=== PATIENT | male | born 1945 | race Caucasian/White ===

== ENCOUNTER 2017-02-25 11:43 | Inpatient (IN) | payer OTHER ==
[~2017-02-25] VITALS: Ht 180.3 cm; Wt 88.9 kg
[~2017-02-25 11:43] MED LIST changes: -ASPI-435 PO; -LIDOCAINE HCL 2% 2 ML VIAL (20MG/ML) ONE; -PROPOFOL IV EMULSION 10 MG/ML 20 ML VIAL IV ONE; -[UNRECOGNIZED DRUG - OTHER]
--- NOTE | 2017-02-25 12:20 | EMERGENCY ROOM VISIT NOTE ---
History Report prepared by Kyree: Devika Steve Under the Supervision of: Dr. Chava Chávez M.D. First contact with patient: 12:06 Chief Complaint: SWELLING TO EXTREMITY Stated Complaint: FROM GI History of Present Illness The patient is a 71 year old male who presents to the Emergency Room with complaints of increasing swelling to his lower extremities that began several months ago. Per Dr. Laird, Anesthesiology, the patient presented to the GI lab today for a colonoscopy. He states that the patient was found to have increased lower extremity edema and appeared Jaundiced. Dr. Laird noted that the patient has noticed increased shortness of breath over the past several months. Per records the patient has a history of a poor ejection fraction and heart failure. The patient denies any history of liver problems. He states that he takes Lasix daily. He notes shortness of breath with movement. The patient reports slight intermittent abdominal pain. He denies any fever or vomiting. The patient denies wearing any oxygen at home. He states that he has had difficulty sleeping lately, noting that he has been feeling anxious about the swelling in his legs. The patient reports a history of heavy alcohol use, but states that he has not drank since 2001. Source of History: patient, treating provider (Dr. Laird) Onset: several months ago Position: leg (bilateral) Quality: other (swelling) Timing: other (increasing) Associated Symptoms: + SOB, + abdominal pain, No fevers, No vomiting Review of Systems See HPI for pertinent positives & negatives. A total of 10 systems reviewed and were otherwise negative. Past Medical & Surgical Medical Problems: (1) ARF (acute renal failure) (2) Chronic kidney disease, stage 3 (3) Fatty liver (4) Hyperbilirubinemia (5) Hypokalemia (6) Hypothyroidism (7) Non-ischemic cardiomyopathy (8) Splenomegaly (9) Systolic CHF Surgical Problems: (1) H/O cardiac catheterization Family History Asthma FH: cancer FH: heart disease Social History Smoking Status: Current Every Day Smoker Alcohol Use: none Drug Use: none Marital Status: Housing Status: lives alone Occupation Status: retired Current/Historical Medications Scheduled Allopurinol (Zyloprim), 300 MG PO QAM Carvedilol (Coreg), 3.125 MG PO BID Cholecalciferol (Vitamin D), 1 TAB PO QAM Levothyroxine Sodium (Synthroid), 100 MCG PO QAM Losartan Potassium (Cozaar), 12.5 MG PO QAM Scheduled PRN Baclofen (Lioresal), 10 MG PO TID PRN for BACK PAIN Furosemide (Lasix), 1 TAB PO BID PRN for FLUID ACCUMULATION/WT GAIN Prednisone (Prednisone), 20 MG PO DIRECTED PRN for PRN Trazodone Hcl (Trazodone), 50 MG PO HS PRN for Sleep Miscellaneous Medications [arthro joint] Allergies Coded Allergies: No Known Allergies (Unverified , 02/25/17) Physical Exam Vital Signs Date Time Temp Pulse Resp B/P (MAP) Pulse Ox O2 Delivery O2 Flow Rate FiO2 02/25/17 14:06 84 22 122/64 93 Room Air 02/25/17 13:36 85 22 92 Room Air 02/25/17 12:17 94 Room Air 02/25/17 12:14 93 02/25/17 11:56 36.6 96 18 128/80 93 Room Air Physical Exam GENERAL: Patient is in no acute distress. HEENT: No acute trauma, normocephalic atraumatic, mucous membranes moist, no nasal congestion. NECK: No stridor, no adenopathy, no meningismus, trachea is midline. LUNGS: Clear to auscultation bilaterally, no wheeze, no rhonchi, breath sounds equal. HEART: No murmurs, rate is regular, but there are some occasional extra beats. ABDOMEN: Soft, nontender, bowel sounds positive, no hernias, no peritonitis. EXTREMITIES: Moderate bilateral pedal edema, extending to the thighs, no cellulitis. No cyanosis, full range of motion of all the joints without pain or difficulty, no signs for acute trauma. NEUROLOGIC: Oriented x 3, no acute motor or sensory deficits, no focal weakness. SKIN: Jaundiced. No rash, no diaphoresis. Medical Decision & Procedures ER Provider Diagnostic Interpretation: Radiology results as stated below per my review and radiologist interpretation: CHEST ONE VIEW PORTABLE HISTORY: Short of breath. COMPARISON: Chest 07/30/2015. FINDINGS: No pleural effusions. No pneumothorax. Calcified granuloma the right lung base. Progressive interstitial vascular thickening. This is consistent with mild congestive change. The cardiac silhouette is also increased in size. Degenerative changes within the bilateral shoulders. IMPRESSION: Increase in size in the cardiac silhouette which could be due to mild cardiomegaly or a small pericardial effusion. There is also mild pulmonary vascular congestion. Electronically signed by: Edgar Caicedo M.D. 02/25/2017 12:08 PM Dictated Date/Time: 02/25/2017 12:07 PM Bilateral lower extremity ultrasound does not show any evidence for acute DVT. Laboratory Results 02/25/17 12:30 Red Blood Count 3.32, Mean Corpuscular Volume 94.9, Mean Corpuscular Hemoglobin 29.5, Mean Corpuscular Hemoglobin Concent 31.1, Mean Platelet Volume 11.6, Neutrophils (%) (Auto) 78.9, Lymphocytes (%) (Auto) 10.5, Monocytes (%) (Auto) 7.6, Eosinophils (%) (Auto) 1.1, Basophils (%) (Auto) 0.2, Neutrophils # (Auto) 6.86, Lymphocytes # (Auto) 0.91, Monocytes # (Auto) 0.66, Eosinophils # (Auto) 0.10, Basophils # (Auto) 0.02 02/25/17 12:30 Test 02/25/17 12:30 02/25/17 12:48 White Blood Count 8.70 K/uL (4.8-10.8) Red Blood Count 3.32 M/uL (4.7-6.1) Hemoglobin 9.8 g/dL (14.0-18.0) Hematocrit 31.5 % (42-52) Mean Corpuscular Volume 94.9 fL (80-100) Mean Corpuscular Hemoglobin 29.5 pg (25-34) Mean Corpuscular Hemoglobin Concent 31.1 g/dl (32-36) Platelet Count 476 K/uL (130-400) Mean Platelet Volume 11.6 fL (7.4-10.4) Neutrophils (%) (Auto) 78.9 % Lymphocytes (%) (Auto) 10.5 % Monocytes (%) (Auto) 7.6 % Eosinophils (%) (Auto) 1.1 % Basophils (%) (Auto) 0.2 % Neutrophils # (Auto) 6.86 K/uL (1.4-6.5) Lymphocytes # (Auto) 0.91 K/uL (1.2-3.4) Monocytes # (Auto) 0.66 K/uL (0.11-0.59) Eosinophils # (Auto) 0.10 K/uL (0-0.5) Basophils # (Auto) 0.02 K/uL (0-0.2) RDW Standard Deviation 60.9 fL (36.4-46.3) RDW Coefficient of Variation 17.7 % (11.5-14.5) Immature Granulocyte % (Auto) 1.7 % Immature Granulocyte # (Auto) 0.15 K/uL (0.00-0.02) Prothrombin Time 13.5 SECONDS (9.0-12.0) Prothromb Time International Ratio 1.3 (0.9-1.1) Activated Partial Thromboplast Time 33.2 SECONDS (21.0-31.0) Partial Thromboplastin Ratio 1.3 Anion Gap 9.0 mmol/L (3-11) Est Creatinine Clear Calc Drug Dose 46.5 ml/min Estimated GFR () 45.4 Estimated GFR (Non- 39.1 BUN/Creatinine Ratio 13.7 (10-20) Calcium Level 8.6 mg/dl (8.5-10.1) Magnesium Level 2.3 mg/dl (1.8-2.4) Total Bilirubin 4.3 mg/dl (0.2-1) Direct Bilirubin 0.4 mg/dl (0-0.2) Aspartate Amino Transf (AST/SGOT) 15 U/L (15-37) Alanine Aminotransferase (ALT/SGPT) 12 U/L (12-78) Alkaline Phosphatase 120 U/L (45-117) Troponin I 0.024 ng/ml (0-0.045) Pro-B-Type Natriuretic Peptide 31844 pg/ml (0-900) Total Protein 7.0 gm/dl (6.4-8.2) Albumin 3.5 gm/dl (3.4-5.0) Lipase 114 U/L (73-393) Thyroid Stimulating Hormone (TSH) 5.120 uIu/ml (0.300-4.500) Free Thyroxine 1.29 ng/dl (0.80-1.60) Urine Color DK YELLOW Urine Appearance CLOUDY (CLEAR) Urine pH 5.5 (4.5-7.5) Urine Specific [place] 1.019 (1.000-1.030) Urine Protein NEG (NEG) Urine Glucose (UA) NEG (NEG) Urine Ketones NEG (NEG) Urine Occult Blood NEG (NEG) Urine Nitrite NEG (NEG) Urine Bilirubin NEG (NEG) Urine Urobilinogen NEG (NEG) Urine Leukocyte Esterase MODERATE (NEG) Urine WBC (Auto) >30 /hpf (0-5) Urine RBC (Auto) 0-4 /hpf (0-4) Urine Hyaline Casts (Auto) 5-10 /lpf (0-5) Urine Epithelial Cells (Auto) >30 /lpf (0-5) Urine Bacteria (Auto) NEG (NEG) Urine Yeast (Auto) (NONE PRSENT) Laboratory results reviewed by me. Medications Administered Medications (Trade) Dose Ordered Sig/Lisa Route Start Time Stop Time Status Last Admin Dose Admin Furosemide (Lasix Inj) 40 mg NOW STAT IV 02/25/17 13:40 02/25/17 13:42 DC 02/25/17 14:02 40 MG ECG Indication: SOB/dyspnea Rate (beats per minute): 94 Rhythm: sinus rhythm Findings: 1st degree AV block, LBBB, PVC, no acute ischemic change ED Course 1207: The patient was evaluated in room C4. A complete history and physical exam was performed. 1340: Ordered Lasix Inj 40 mg IV. 1342: I reevaluated the patient and he is resting comfortably. I discussed the exam findings with him and I discussed the treatment plan. He verbalized complete understanding and agreement. He is going to be evaluated for further treatment. 1345: I discussed the patients case with Lucinda Drummond. She is going to evaluate the patient for further treatment. Medical Decision The patient is a 71 year old male who presents to the ED with complaints of swelling to his lower extremities. Differential diagnoses considered include Hepatitis, liver failure, dehydration, electrolyte imbalance, anemia, CHF, fluid overload, [place]. There is no leukocytosis. The patient is anemic but this appears baseline looking back at previous testing. There is some acute renal failure/ dehydration by renal panel testing. Bilirubin is elevated at over 4, this is an acute finding. This explains his jaundiced appearance. No pancreatitis. The patient's thyroid testing suggests the use of thyroid medication. Urinalysis shows infection versus contamination, urine culture is pending. Bilateral lower extremity ultrasound does not show evidence for DVT. Chest film from earlier today demonstrates some cardiomegaly, no overwhelming CHF. No pneumothorax. BNP quite elevated at over 20,000. A mild coagulopathy was noted by our testing. The patient received IV Lasix to start his diuresis. He is resting comfortably. He complains of being hungry. The patient presents with new onset jaundice. He is markedly fluid overloaded. He requires diuresis. Further workup and care in the hospital is warranted. I spoke to the patient and case management. The on-call hospitalist was consulted. Medication Reconcilliation Current Medication List: was personally reviewed by me Consults Time Called: 1340 Consulting Physician: Chris Drummond Returned Call: [phone] I discussed the patients case with Lucinda Drummond. She is going to evaluate the patient for further treatment. Impression Primary Impression: Shortness of breath Additional Impressions: Fluid overload Jaundice Scribe Attestation The scribe's documentation has been prepared under my direction and personally reviewed by me in its entirety. I confirm that the note above accurately reflects all work, treatment, procedures, and medical decision making performed by me. Departure Information Dispostion Being Evaluated By Hospitalist Referrals Michi Campbell M.D. (PCP) Problem Qualifiers
[2017-02-25] MEDS ORDERED: [UNRECOGNIZED DRUG - OTHER] (12:34)
[2017-02-25 12:56] LABS: BASO % 0.2 %; BASO ABS # 0.02 K/uL (0-0.2); COMPLETE YES; EOS % 1.1 %; HEMATOCRIT 31.5 % (42-52); IG% 1.7 %; LYMPH % 10.5 %; LYMPH ABS # 0.91 K/uL (1.2-3.4); MEAN CELL VOLUME 94.9 fL (80-100); MEAN CORPUSCULAR HEMOGLOBIN 29.5 pg (25-34); MEAN CORPUSCULAR HGB CONC 31.1 g/dl (32-36); MEAN PLATELET VOLUME 11.6 fL (7.4-10.4); MONO % 7.6 %; NEUT % 78.9 %; PLATELET COUNT 476 K/uL (130-400); RED BLOOD COUNT 3.32 M/uL (4.7-6.1)
[2017-02-25 13:00] LABS: INR 1.3 (0.9-1.1); PARTIAL THROMBOPLASTIN RATIO 1.3; PROTHROMBIN TIME (PATIENT) 13.5 SECONDS (9.0-12.0)
[2017-02-25 13:12] LABS: URINE APPEARANCE CLOUDY (CLEAR); URINE BILIRUBIN NEG (NEG); URINE COLOR DK YELLOW; URINE NITRITE NEG (NEG); URINE PH 5.5 (4.5-7.5); URINE SPECIFIC GRAVITY 1.019 (1.000-1.030); UROBILINOGEN NEG (NEG); ZZUR CULT IF INDIC CLEAN CATCH YES
[2017-02-25 13:18] LABS: MANUAL MICROSCOPIC REQUIRED? NO; REVIEW REQ? YES
[2017-02-25 13:19] LABS: BUN/CREATININE RATIO 13.7 (10-20); CALCIUM 8.6 mg/dl (8.5-10.1); CREATININE 1.7 mg/dl (0.60-1.40); MAGNESIUM 2.3 mg/dl (1.8-2.4); POTASSIUM 3.1 mmol/L (3.5-5.1)
[2017-02-25 13:28] LABS: THYROID STIMULATING HORMONE 5.12 uIu/ml (0.300-4.500)
[2017-02-25] MEDS ORDERED: FUROSEMIDE 40 MG/4 ML VIAL IV STA (13:40)
[2017-02-25 13:47] LABS: URINE EPITHELIAL CELL AUTO >30 /lpf (0-5)
--- NOTE | 2017-02-25 15:01 | DIAGNOSTIC IMAGING REPORT ---
BILATERAL LOWER EXTREMITY VENOUS DOPPLER HISTORY: Lower extremity edema COMPARISON STUDY: None. FINDINGS: There is normal compressibility, flow, and augmentation within the bilateral lower extremity deep venous systems. IMPRESSION: No DVT within the right or left lower extremity. Electronically signed by: Edgar Caicedo M.D. 02/25/2017 3:00 PM Dictated Date/Time: 02/25/2017 2:58 PM
[2017-02-25] MEDS ORDERED: ASPI-435 PO (15:43)
[2017-02-25] MEDS ORDERED: ZOLPIDEM TARTRATE 5 MG TAB PO PRN (15:45)
[2017-02-25] MEDS ORDERED: ONDANSETRON INJ 2 MG/ML 2 ML VIAL IV PRN (15:45)
[2017-02-25] MEDS ORDERED: TRAZODONE HCL 50 MG TAB PO PRN (16:30)
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
--- NOTE | 2017-02-25 17:34 | DIAGNOSTIC IMAGING REPORT ---
ULTRASOUND RIGHT UPPER QUADRANT ABDOMEN CLINICAL HISTORY: Jaundice. COMPARISON STUDY: Renal ultrasound dated 07/30/2015. TECHNIQUE: Real-time, grayscale, and color flow sonography of the right upper quadrant of the abdomen was performed. Images are reviewed in the transverse and longitudinal planes. FINDINGS: Liver: The liver is mildly enlarged measuring over 19 cm in length. The liver is slightly heterogeneous in echotexture. There is no intrahepatic biliary ductal dilatation. The main portal vein is patent. Gallbladder: The gallbladder is normal in appearance. No gallstones are identified. There is no gallbladder wall thickening or pericholecystic fluid. A sonographic Pérez's sign is reportedly absent. The common bile duct measures up to 0.6 cm in diameter. Pancreas: Visualized portions of the pancreatic head and body are normal in appearance. Right kidney: Survey images of the right kidney demonstrate cortical atrophy. There is no hydronephrosis. Ascites: None. IMPRESSION: 1. The liver is mildly enlarged and heterogeneous in echotexture. 2. There is no intra or extrahepatic biliary ductal dilatation. 3. No gallstones are identified. Electronically signed by: Chava Cardoza M.D. 02/25/2017 5:32 PM Dictated Date/Time: 02/25/2017 5:31 PM
[2017-02-25 18:43] VITALS: BP 131/76; PULSE 94; TEMP 36.6; O2SAT 95; Ht 180.3 cm; Wt 88.9 kg
[2017-02-25] MEDS ORDERED: INFLUENZA VACCINE HIGH DOSE 65+ 0.5 ML SYR IM. ONE (19:45)
[2017-02-25] MEDS ORDERED: PNEUMOCOCCAL ADMINISTRATION CHARGE ONE (19:45)
[2017-02-25] MEDS ORDERED: INFLUENZA ADMINISTRATION CHARGE ONE (19:45)
[2017-02-25] MEDS ORDERED: PNEUMOCOCCAL POLYSACCHARIDES 25 MCG/0.5 ML VIAL/SYR IM. ONE (19:45)
[2017-02-25 20:32] VITALS: BP 129/84; PULSE 85
[2017-02-25] MEDS: POTASSIUM CHLORIDE 20 MEQ TABCR PO SCH (20:33)
[2017-02-25] MEDS: FUROSEMIDE INJ 40 MG in SYRINGE 0 ML IV SCH (20:35)
[2017-02-25] MEDS: CARVEDILOL 3.125 MG TAB PO SCH (20:36)
[2017-02-25] MEDS: HEPARIN SOD 5000 UNIT/0.5 ML CARP SQ SCH (20:39)
[2017-02-25] MEDS: BACLOFEN 10 MG TAB PO PRN (20:40)
[2017-02-25] MEDS ORDERED: HEPARIN SOD 5000 UNIT/0.5 ML CARP SQ SCH (21:00)
[2017-02-25 21:09] VITALS: BP 129/91; PULSE 97; TEMP 36.3; O2SAT 93
[2017-02-25] MEDS ORDERED: FAMOTIDINE 20 MG TAB PO STA (21:57)
[2017-02-25] MEDS: ZOLPIDEM TARTRATE 5 MG TAB PO PRN (22:13)
[2017-02-25] MEDS: CALCIUM CARBONATE 500 MG CHEWABLE PO PRN (22:15)
[2017-02-25 22:58] VITALS: BP 113/74; PULSE 94; TEMP 36.6; O2SAT 93
[2017-02-26] VITALS (9 sets, daily range): BP systolic 94–123; BP diastolic 60–77; PULSE 78–94; TEMP 36.4–36.7; O2SAT 91–96
[2017-02-26] MEDS: POTASSIUM CHLORIDE 20 MEQ TABCR PO SCH (00:42)
[2017-02-26] MEDS: BACLOFEN 10 MG TAB PO PRN (05:04)
[2017-02-26] MEDS: LEVOTHYROXINE 100 MCG TAB PO SCH (05:05)
--- NOTE | 2017-02-26 07:13 | DIAGNOSTIC IMAGING REPORT ---
CHEST ONE VIEW PORTABLE CLINICAL HISTORY: 71 years-old Male presenting with Acute on chronic CHF . TECHNIQUE: Portable upright AP view of the chest was obtained. COMPARISON: 02/25/2017. FINDINGS: Cardiopericardial silhouette remains enlarged. Atherosclerosis of aortic arch. Prominent pulmonary vasculature. No new focal infiltrate. No pleural effusion or pneumothorax. Calcified granuloma or bone island noted at the right lung base, better visualized on prior exam. Degenerative changes of the bilateral glenohumeral joints and spine. Numerous external leads project over the right upper quadrant degrading evaluation. IMPRESSION: 1. Cardiomegaly with pulmonary vascular congestion. No shawna pulmonary edema. Pericardial effusion not excluded. Electronically signed by: Lobo Hernández M.D. 02/26/2017 7:11 AM Dictated Date/Time: 02/26/2017 7:10 AM
[2017-02-26 07:52] LABS: HEMATOCRIT 33.1 % (42-52); MEAN CELL VOLUME 95.9 fL (80-100); MEAN CORPUSCULAR HEMOGLOBIN 29.6 pg (25-34); MEAN CORPUSCULAR HGB CONC 30.8 g/dl (32-36); MEAN PLATELET VOLUME 11.5 fL (7.4-10.4); PLATELET COUNT 531 K/uL (130-400); RED BLOOD COUNT 3.45 M/uL (4.7-6.1); WHITE BLOOD COUNT 9.15 K/uL (4.8-10.8)
[2017-02-26 07:58] LABS: INR 1.3 (0.9-1.1); PROTHROMBIN TIME (PATIENT) 13.8 SECONDS (9.0-12.0)
[2017-02-26 08:23] LABS: BUN/CREATININE RATIO 12.8 (10-20); CALCIUM 9.2 mg/dl (8.5-10.1); CREATININE 1.9 mg/dl (0.60-1.40)
[2017-02-26] MEDS: HEPARIN SOD 5000 UNIT/0.5 ML CARP SQ SCH ×2 (08:53→21:00)
[2017-02-26] MEDS: FUROSEMIDE INJ 40 MG in SYRINGE 0 ML IV SCH (08:54)
[2017-02-26] MEDS: CHOLECALCIFEROL 1000 INTER.UNIT TAB PO SCH (08:56)
[2017-02-26] MEDS: ASPIRIN 81 MG ECTAB PO SCH (08:56)
[2017-02-26] MEDS: ALLOPURINOL 300 MG TAB PO SCH (08:56)
[2017-02-26] MEDS: CARVEDILOL 3.125 MG TAB PO SCH ×2 (08:57→21:04)
[2017-02-26] MEDS ORDERED: POTASSIUM CHLORIDE 10 MEQ TABCR PO SCH (09:00)
[2017-02-26] MEDS ORDERED: LOSARTAN POTASSIUM 25 MG TAB PO SCH (09:00)
--- NOTE | 2017-02-26 10:11 | ECHOCARDIOGRAM REPORT ---
*NOTICE TO RECEIVING REPUBLICAN AGENCY This information is strictly Confidential and protected under [place] law. [place] law prohibits you from making any further disclosure of this information unless further disclosure is expressly permitted by the written consent of the person to whom it pertains or is authorized by law. A general authorization for the release of medical or other information is not sufficient for this purpose. Hospital accepts no responsibility if the information is made available to any other person, INCLUDING THE PATIENT. Interpretation Summary * Name: ANGELA PANDEY Study Date: 02/26/2017 07:54 AM BP: 116/75 mmHg * Patient Location: [facility]\S\N285\S\2 HR: 94 * : 1945 (M/d/yyyy) Gender: Male Height: 71 in * Age: 71 yrs Ethnicity: [place] Weight: 219 lb * Ordering Physician: Sadia Garcia * Referring Physician: Self, Referred * Performed By: Carmen Delgado RCS * * Reason For Study: CHF * BSA: 2.2 m2 * -- Conclusions -- * Compared to previous study of 01/02/15: EF is unchanged, MR and TR are now present. * Moderately dilated LV chamber size with normal wall thickness. * Severely reduced LV systolic function with severe global hypokinesis, EF 25-30%. * Grade II diastolic dysfunction. * The mitral valve anatomy is normal. * There is moderate mitral regurgitation. * The mitral regurgitant jet is posteriorly directed, which is consistent with anterior leaflet pathology. * Mild to moderate tricuspid regurgitation. * Pulmonary hypertension is present with a PASP of 56 mmHg assuming a RA pressure of 15mmHg. * Mild biatrial enlargement. Procedure Details * A complete two-dimensional transthoracic echocardiogram was performed (2D, M-mode, Doppler and color flow Doppler). Left Ventricle * The left ventricle is moderately dilated. * There is normal left ventricular wall thickness. * Ejection Fraction = 25-30%. * Left ventricular systolic function is severely reduced. * There is severe global hypokinesis of the left ventricle. Right Ventricle * The right ventricular cavity size is normal (basal dimension <4.2 cm in right ventricular apical 4-chamber view). * The right ventricular systolic function is normal as assessed by tricuspid annular plane systolic excursion (TAPSE) (normal >1.5 cm). Atria * The left atrium is mildly dilated. * The right atrium is mildly dilated. * No ASD detected; PFO is not assessed. Mitral Valve * The mitral valve anatomy is normal. * There is no mitral valve stenosis. * There is moderate mitral regurgitation. * The mitral regurgitant jet is posteriorly directed, which is consistent with anterior leaflet pathology. Tricuspid Valve * The tricuspid valve anatomy is normal. * There is no tricuspid stenosis. * There is mild to moderate tricuspid regurgitation. Aortic Valve * The aortic valve is not well visualized. * No hemodynamically significant valvular aortic stenosis. * There is no significant aortic regurgitation. Pulmonic Valve * The pulmonary valve is not well seen, but the Doppler examination is normal without significant regurgitation or stenosis. Great Vessels * The aortic root and proximal ascending aorta are normal sized. Pericardium/Pleural * There is no pericardial effusion. Left Ventricular Diastolic Function * Diastolic dysfunction, Grade II (pseudonormalization pattern). MMode 2D Measurements and Calculations IVSd 1.1 cm IVSs 1.1 cm LVIDd 7.4 cm LVIDs 6.7 cm LVPWd 1.1 cm LVPWs 1.1 cm IVS/LVPW 0.97 FS 10.5 % EDV(Teich) 292.8 ml ESV(Teich) 228.3 ml EF(Teich) 22.0 % EDV(cubed) 411.6 ml ESV(cubed) 295.5 ml EF(cubed) 28.2 % % IVS thick 0.17 % % LVPW thick -4.81 % LV mass(C)d 417.5 grams LV mass(C)dI 190.5 grams/m\S\2 LV mass(C)s 335.2 grams LV mass(C)sI 152.9 grams/m\S\2 SV(Teich) 64.5 ml SI(Teich) 29.4 ml/m\S\2 SV(cubed) 116.0 ml SI(cubed) 52.9 ml/m\S\2 Ao root diam 3.7 cm Ao root area 10.9 cm\S\2 ACS 1.5 cm LA dimension 4.5 cm asc Aorta Diam 2.9 cm LA/Ao 1.2 Doppler Measurements and Calculations MV E max jodi 92.7 cm/sec MV A max jodi 41.2 cm/sec MV E/A 2.2 MV P1/2t max jodi 98.5 cm/sec MV P1/2t 122.1 msec MVA(P1/2t) 1.8 cm\S\2 MV dec slope 236.4 cm/sec\S\2 MV dec time 0.19 sec Ao V2 max 130.1 cm/sec Ao max PG 6.8 mmHg Ao max PG (full) 6.1 mmHg LV V1 max PG 0.70 mmHg LV V1 max 41.8 cm/sec PA V2 max 59.9 cm/sec PA max PG 1.4 mmHg TR max jodi 319.3 cm/sec
[2017-02-26] MEDS ORDERED: ALUMINUM/MAGNESIUM/SIMETH (MAALOX MAX) 30 ML UDC PO ONE (11:30)
[2017-02-26] MEDS ORDERED: SPIRONOLACTONE 25 MG TAB PO ONE (11:30)
--- NOTE | 2017-02-26 11:44 | CARDIOLOGY CONSULTATION ---
DATE OF CONSULTATION: 02/26/2017 DATE OF CONSULTATION: 02/26/2017 CONSULTATION REQUESTED BY: NÉSTOR. REASON FOR CONSULTATION: Acute decompensated systolic heart failure. HISTORY OF PRESENT ILLNESS: Mr. Abraham is a 71-year-old gentleman who intermittently follows with Dr. Novak of our cardiology practice. The patient presented to [facility] for an outpatient colonoscopy today to evaluate adenomatous polyps. However, upon presentation, the patient was found to be jaundiced with significant peripheral edema. The colonoscopy was canceled and the patient was directed to the Emergency Room for further evaluation. In the ER, the patient was found to be significantly volume overloaded. He was started on IV diuretics and admitted to telemetry. The patient was seen and examined at the bedside. He admits that his symptoms started approximately 2 months ago. He started at that time, he noticed that he started getting a little bit more short of breath than normal with exertion. At the same time, his lower extremity seemed to start swelling and he developed some abdominal distention. The symptoms slowly progressed over the next 2 months to the point where he had swelling in his legs up to the mid thigh. His abdomen was significantly distended to the point where he is having early satiety and he was getting more and more short of breath with exertion. Luckily, though he denied any chest pain or palpitations. Currently, he states that he feels his abdomen improving with diuresis and otherwise feeling well. He states he has been taking his medications as an outpatient and that he has been adhering to his low salt diet. PAST SURGICAL HISTORY: 1. Cardiac catheterization in 2013 showing nonobstructive disease. 2. Multiple colonoscopies. MEDICAL ILLNESSES: 1. Nonischemic cardiomyopathy, EF of 25-30%, refusing ICD therapy in the past. 2. Stage III chronic kidney disease. 3. Fatty liver. 4. Hypothyroidism. 5. Borderline personality disorder. 6. Splenomegaly. 7. Gout. FAMILY HISTORY: Remarkable for mother developed heart disease at a later age. SOCIAL HISTORY: The patient is a lifelong smoker and continues to smoke half pack a day. Denies any alcohol, did have a history of significant alcohol use. Denies any recreational drug use. REVIEW OF SYSTEMS: As per HPI. All other review of systems reviewed and negative at this time. ALLERGIES: No known drug allergies. MEDICATIONS AN OUTPATIENT: 1. Aspirin 81 mg daily. 2. Losartan 12.5 mg daily. 3. Lasix 40 to 80 mg daily, directed per volume overload. 4. Coreg 3.125 mg b.i.d. 5. Levothyroxine daily. 6. Allopurinol daily. 7. Baclofen as needed. PHYSICAL EXAMINATION: VITALS: Temperature 36.4, pulse 94, respiratory rate 12, blood pressure 116/75. GENERAL: Awake, alert, oriented x3 in no acute distress, out of bed seated in a chair, jaundiced in appearance. HEENT: Normocephalic, atraumatic. Pupils equal, round, and reactive to light and accommodation. Extraocular muscles intact. Positive scleral icterus. NECK: No JVD or bruit. CARDIOVASCULAR: Regular, but distant. Unable to appreciate any murmurs, rubs or gallops. PULMONARY: Poor air movement bilateral bases. Scattered rhonchi. No rales or wheezing. ABDOMEN: Bowel sounds x4. Distended, no rebound, guarding, tenderness. No organomegaly. EXTREMITIES: +2 bilateral lower extremity pitting edema up to mid thigh. +1 pedal pulses bilaterally. SKIN: Warm and dry. TEST RESULTS: Chest x-ray was read as cardiomegaly with pulmonary vascular congestion. No pericardial effusions. A 2D echocardiogram was read as compared to previous study of 01/02/2015, EF is unchanged. MR and TR and now present. Moderately dilated LV chamber size with normal wall thickness, severely reduced LV systolic function, EF is 25-30% with severe global hypokinesis, grade 2 diastolic dysfunction, moderate mitral regurgitation with a posteriorly directed jet, mild to moderate tricuspid regurgitation, pulmonary hypertension is present with PA systolic pressure of 56 mmHg assuming a RA pressure of 15 mmHg, mild biatrial enlargement. IMPRESSION: 1. Acute decompensated left ventricular systolic heart failure. 2. Newly discovered pulmonary hypertension. 3. Newly discovered mitral regurgitation. 4. Worsening of renal function likely secondary to cardiorenal syndrome. 5. Jaundice, likely secondary to passive congestion. RECOMMENDATIONS: It was my pleasure to see Mr. Abraham in consultation today. The patient is definitely volume overloaded and with a new finding of mitral regurgitation on echocardiogram, this is not unexpected. So at this point I agree with b.i.d. IV Lasix; however, I will increase the dose to 80 mg b.i.d. given his impaired renal function. I will also start him on spironolactone 25 mg daily, and I will continue his current doses of Coreg, but his losartan will be held at this point while we follow his renal function. I will hold off on his potassium supplementation at this point also given the fact that we are started on spironolactone. Strict I's and O's should be maintained and we will continue to follow closely on telemetry monitoring. Once again, the need for primary prevention of arrhythmia and possible arrhythmogenic were discussed with the patient. Once again, he refused the ICD placement. KARINA
--- NOTE | 2017-02-26 18:34 | Progress Note ---
Internal Med Progress Note Date of Service: Feb 26, 2017. Provider Documentation: SUBJECTIVE: patient ambulatory. denies chest pain, denies shortness of breath. still has leg swelling OBJECTIVE: General Appearance: no apparent distress Head: normocephalic, atraumatic Eyes: PERRL, EOMI ENT: hearing grossly normal Neck: supple, no adenopathy, no JVD, trachea midline Respiratory/Chest: chest non-tender, no respiratory distress, no accessory muscle use, + rhonchi Cardiovascular: regular rate, rhythm, no murmur Abdomen/GI: normal bowel sounds, non tender, soft Back: normal inspection, no CVA tenderness Extremities: no calf tenderness, 2+ bilateral edema up to knees. Associated skin hypertrophy and discoloration observed. No skin breakdown Neurologic/Psych: no motor/sensory deficits, alert, normal mood/affect, oriented x 3 ASSESSMENT & PLAN: Acute on chronic CHF: TTE:left ventricle is moderately dilated. Ejection Fraction = 25-30%. severe global hypokinesis of the left ventricle. Cardiology: increase Lasix to 80 mg IV BID, spirolactone for cardiorenal symptoms Hypokalemia resolved after repletion eep on standing potassium repletion and monitor potassium as patient on increased doses of lasix Elevated indirect bilirubin, elevated alk phosphatase, mild jaundice Ultrasound abdomen fairly benign: The liver is mildly enlarged and heterogeneous in echotexture. There is no intra or extrahepatic biliary ductal dilatation. No gallstones are identified. GGT and G6PD and haptoglobin ordered but pending results LDH 556 elevated suggestive of some hemolysis peripheral smear: "overall findings are consistent with normocytic anemia with thrombocytosis" Normocytic anemia stable HTN: Normotensive, Continue home regimen CKD III: Monitor closely while on diuretics Hypothyroidism on Levothyroxine TSH 5.12, T4 8.6 Continue home dose of levothyroxine DVT Ppx: Heparin SQ Code status: FULL PCP: Pilgram Dispo: Plan to return home once adequately diuresed on IV lasix Vital Signs: Date Time Temp Pulse Resp B/P (MAP) Pulse Ox O2 Delivery O2 Flow Rate FiO2 02/26/17 16:09 36.7 84 16 104/60 (75) 95 Room Air 02/26/17 16:00 91 Room Air 02/26/17 15:17 36.5 86 18 111/72 (85) 94 Room Air 02/26/17 12:53 Room Air 02/26/17 12:00 Room Air 02/26/17 08:00 Room Air 02/26/17 07:36 36.4 94 24 116/75 (89) 91 Room Air 02/26/17 04:07 Room Air 02/26/17 04:00 36.6 85 20 123/77 (92) 92 02/26/17 00:05 Room Air 02/25/17 22:58 36.6 94 18 113/74 (87) 93 Room Air 02/25/17 21:09 36.3 97 18 129/91 (104) 93 Room Air 02/25/17 20:32 85 129/84 (99) 02/25/17 18:43 36.6 94 18 131/76 95 Room Air Lab Results: Results Past 24 Hours Test 02/26/17 07:34 Range/Units White Blood Count 9.15 4.8-10.8 K/uL Red Blood Count 3.45 4.7-6.1 M/uL Hemoglobin 10.2 14.0-18.0 g/dL Hematocrit 33.1 42-52 % Mean Corpuscular Volume 95.9 80-100 fL Mean Corpuscular Hemoglobin 29.6 25-34 pg Mean Corpuscular Hemoglobin Concent 30.8 32-36 g/dl RDW Standard Deviation 61.9 36.4-46.3 fL RDW Coefficient of Variation 17.7 11.5-14.5 % Platelet Count 531 130-400 K/uL Mean Platelet Volume 11.5 7.4-10.4 fL Nucleated RBC Absolute Count (auto) 0.06 0-0 K/uL Nucleated Red Blood Cells % 0.7 % Peripheral Blood Smear Path Consult Prothrombin Time 13.8 9.0-12.0 SECONDS Prothromb Time International Ratio 1.3 0.9-1.1 Sodium Level 139 136-145 mmol/L Potassium Level 4.0 3.5-5.1 mmol/L Chloride Level 102 98-107 mmol/L Carbon Dioxide Level 30 21-32 mmol/L Anion Gap 7.0 3-11 mmol/L Blood Urea Nitrogen 24 7-18 mg/dl Creatinine 1.90 0.60-1.40 mg/dl Est Creatinine Clear Calc Drug Dose 65.0 ml/min Estimated GFR () 39.7 Estimated GFR (Non- 34.2 BUN/Creatinine Ratio 12.8 10-20 Random Glucose 102 70-99 mg/dl Calcium Level 9.2 8.5-10.1 mg/dl Total Bilirubin 4.8 0.2-1 mg/dl Aspartate Amino Transf (AST/SGOT) 24 15-37 U/L Alanine Aminotransferase (ALT/SGPT) 14 12-78 U/L Alkaline Phosphatase 135 45-117 U/L Total Protein 7.2 6.4-8.2 gm/dl Albumin 3.6 3.4-5.0 gm/dl Globulin 3.6 2.5-4.0 gm/dl Albumin/Globulin Ratio 1.0 0.9-2
[2017-02-26] MEDS: FUROSEMIDE INJ 80 MG in SYRINGE 0 ML IV SCH (21:03)
[2017-02-26] MEDS: ZOLPIDEM TARTRATE 5 MG TAB PO PRN (21:10)
[2017-02-27 03:47] VITALS: BP 100/60; PULSE 64; TEMP 36.4; O2SAT 94
[2017-02-27] MEDS: LEVOTHYROXINE 100 MCG TAB PO SCH (05:38)
[2017-02-27 06:15] LABS: BUN/CREATININE RATIO 15.9 (10-20); CALCIUM 8.5 mg/dl (8.5-10.1); CREATININE 2.2 mg/dl (0.60-1.40); POTASSIUM 3.8 mmol/L (3.5-5.1)
[2017-02-27 07:22] VITALS: BP 94/51; PULSE 86; TEMP 36.4; O2SAT 93
[2017-02-27] MEDS: HEPARIN SOD 5000 UNIT/0.5 ML CARP SQ SCH ×2 (08:31→21:00)
[2017-02-27] MEDS: CARVEDILOL 3.125 MG TAB PO SCH (08:33)
[2017-02-27] MEDS: FUROSEMIDE INJ 80 MG in SYRINGE 0 ML IV SCH ×2 (08:34→20:59)
[2017-02-27] MEDS: ASPIRIN 81 MG ECTAB PO SCH (08:34)
[2017-02-27] MEDS: SPIRONOLACTONE 25 MG TAB PO SCH (08:34)
[2017-02-27] MEDS: CHOLECALCIFEROL 1000 INTER.UNIT TAB PO SCH (08:34)
[2017-02-27] MEDS: ALLOPURINOL 300 MG TAB PO SCH (08:34)
[2017-02-27 08:35] VITALS: BP 138/79; PULSE 89
--- NOTE | 2017-02-27 10:15 | Cardiology Follow-Up ---
Subjective Subjective Date of Service: Feb 27, 2017. Pt evaluation today including: conversation w/ patient, physical exam, chart review, lab review, review of studies, review of inpatient medication list Additional Details: Pt seen and examined, states that he feels about the same. Admits that breathing has improved though but edema unchanged. Denies cp, palpitations, lightheadedness or dizziness. Tele reviewed: sinus rhythm with 2 short salvos of wide complex tachycardia, asymptomatic Problem List Medical Problems: (1) Ambulatory dysfunction Status: Acute (2) Fluid overload Status: Acute (3) Generalized weakness Status: Acute (4) Jaundice Status: Acute (5) Kidney disease Status: Acute (6) Polyarticular arthritis Status: Acute (7) Shortness of breath Status: Acute (8) Symptomatic anemia Status: Acute Review of Systems Constitutional: + weakness, + fatigue Respiratory: + dyspnea on exertion, No see HPI, No cough, No sputum, No wheezing, No shortness of breath, No dyspnea at rest, No hemoptysis, No problem reported Cardiac: + edema, No see HPI, No chest pain, No orthopnea, No PND, No claudication, No palpitations, No problem reported Musculoskeletal: + joint pain Neurologic: + weakness, + balance problems Endo: + fatigue Objective Vital Signs Last Vital Signs Documentation Date Time Temp Pulse Resp B/P (MAP) Pulse Ox O2 Delivery O2 Flow Rate FiO2 02/27/17 08:35 89 138/79 (98) 02/27/17 08:30 Room Air 02/27/17 07:22 36.4 20 93 Physical Exam: General Appearance: WD/WN, no apparent distress Eyes: bilateral eyes normal inspection, bilateral eyes PERRL, bilateral eyes EOMI ENT: normal ENT inspection, hearing grossly normal, pharynx normal Neck: supple, no adenopathy, thyroid normal, no JVD, no carotid bruits, trachea midline Respiratory/Chest: chest non-tender, no respiratory distress, no accessory muscle use, + decreased breath sounds Cardiovascular: regular rate, rhythm, + pertinent finding (distant, unable to apprecitate murmurs, rubs or gallops) Abdomen: non tender, soft Extremities: normal inspection, no calf tenderness, + pertinent finding (+2 b/ l LE edema to above the knee) Neurologic/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 acute decompensated systolic heart failure unclear if diuresing well, unsure of accuracy of I/O's daily weights being used on different scales cont IV lasix 80mg bid and spironolactone renal function trending down, likely component of cardiorenal syndrome with poor perfusion will ask our nephrology colleagues to evaluate losartan held 2. new mitral regurgitation likely playing a component in decompensation follow 3. acute on chronic renal failure ?cardiorenal syndrome losartan held need to cont with diuresis clinically appreciate nephrology input 4. wide complex tachycardia aberrancy vs. ventricular tachycardia patient does qualify for BiV ICD however, refusing explained potentially fatal, he states that he understands but does not want procedure will increase dose of coreg cont to monitor on tele
[2017-02-27] MEDS ORDERED: CARVEDILOL 3.125 MG TAB PO ONE (10:16)
[2017-02-27 11:09] VITALS: BP 112/68; PULSE 83; TEMP 36.6; O2SAT 92
[2017-02-27] MEDS: BACLOFEN 10 MG TAB PO PRN ×2 (12:09→21:01)
--- NOTE | 2017-02-27 13:29 | Clinical Documentation Query ---
CLINICAL DOCUMENTATION QUERY Dr. ALFARO, In your clinical opinion is this patient being managed for: (x ) Acute kidney failure ( ) Not Agree ( ) Other explanation of clinical findings (Please Explain) ( ) Unable to determine (Please Define) ( ) Need to Discuss The medical record reflects the following clinical findings, treatment, and risk factors. Clinical Indicators: 71 yo male presenting with acute systolic CHF. Initial Cr 1.7 which has trended up to Cr 2.20. Pt has been receiving IV and aldactone for diuresis. Treatment: monitor PRP's, nephrology consult pending, I/O, daily wts Risk Factors: age, diuresis for acute systolic CHF, CKD stage III, cardiomyopathy, HTN Please clarify and document your clinical opinion in the progress notes and discharge summary. Terms such as "probable", "suspected", "likely", "questionable", "possible", or "still to be ruled out" are acceptable. IF IN AGREEMENT, YOU MUST DOCUMENT ABOVE DIAGNOSTIC STATEMENT IN DAILY PROGRESS NOTES AND DISCHARGE SUMMARY. This document is not part of the patient's record. Thank You, Rosio Gardiner, RN [phone]
[2017-02-27 15:00] VITALS: BP 116/70; PULSE 83; TEMP 36.4; O2SAT 95
--- NOTE | 2017-02-27 17:43 | Progress Note ---
Internal Med Progress Note Date of Service: Feb 27, 2017. Provider Documentation: SUBJECTIVE: patient ambulatory. denies acute chest pain or acute shortness of breath. still has leg swelling that appears to be resolving OBJECTIVE: General Appearance: no apparent distress Head: normocephalic, atraumatic Eyes: PERRL, EOMI ENT: hearing grossly normal Neck: supple, no adenopathy, no JVD, trachea midline Respiratory/Chest: chest non-tender, no respiratory distress, no accessory muscle use, more clear lung sound bilaterally today Cardiovascular: regular rate, rhythm, no murmur Abdomen/GI: normal bowel sounds, non tender, soft Back: normal inspection, no CVA tenderness Extremities: no calf tenderness, some edema of lower extremities bilaterally, has hard skin on lower extremities likely from chronic skin changes due to recurrent lower extremity edema Neurologic: no motor/sensory deficits, alert, normal mood/affect, oriented x 3 ASSESSMENT & PLAN: Acute on chronic CHF with new mitral regurgitation TTE:left ventricle is moderately dilated. Ejection Fraction = 25-30%. severe global hypokinesis of the left ventricle. Cardiology had increase Lasix to 80 mg IV BID and added spirolactone, cardiology recommending to continue diuresis at same rate with the thoughts that the creatinine rise is due to poor renal perfusion from cardiorenal syndrome but requesting nephrology consult alternatively elevated creatinine may be from Acute kidney injury from the increased diuresis but will defer to nephrologies assessment on this matter Hypokalemia resolved after repletion on standing potassium repletion and monitor potassium as patient on high doses of Lasix Wide complex tachycardia (aberrancy vs. ventricular tachycardia) -as per cardiology, patient qualifies for BIV ICD however has been refusing -on increase level of coreg Elevated indirect bilirubin, elevated alk phosphatase, mild jaundice -Ultrasound abdomen fairly benign: The liver is mildly enlarged and heterogeneous in echotexture. There is no intra or extrahepatic biliary ductal dilatation. No gallstones are identified. -GGT and G6PD and haptoglobin ordered but pending results -LDH 556 elevated suggestive of some hemolysis -peripheral smear: "overall findings are consistent with normocytic anemia with thrombocytosis" Normocytic anemia stable HTN: Normotensive, Continue home regimen CKD III: Monitor closely while on diuretics Hypothyroidism on Levothyroxine TSH 5.12, T4 8.6 Continue home dose of levothyroxine DVT Ppx: Heparin SQ Code status: FULL PCP: Pilgram Dispo: Plan to return home once adequately diuresed on IV Lasix Vital Signs: Date Time Temp Pulse Resp B/P (MAP) Pulse Ox O2 Delivery O2 Flow Rate FiO2 02/27/17 15:00 36.4 83 20 116/70 (85) 95 Room Air 02/27/17 12:15 Room Air 02/27/17 11:09 36.6 83 20 112/68 (83) 92 Room Air 02/27/17 08:35 89 138/79 (98) 02/27/17 08:30 Room Air 02/27/17 07:22 36.4 86 20 94/51 (65) 93 Room Air 02/27/17 04:00 Room Air 02/27/17 03:47 36.4 64 16 100/60 (73) 94 Room Air 02/26/17 23:59 Room Air 02/26/17 23:46 103/61 (75) 02/26/17 23:26 36.6 79 16 94/60 (71) 96 Room Air 02/26/17 20:00 91 Room Air 02/26/17 19:48 36.5 78 18 110/75 (87) 96 Room Air Lab Results: Results Past 24 Hours Test 02/27/17 05:22 Range/Units Sodium Level 141 136-145 mmol/L Potassium Level 3.8 3.5-5.1 mmol/L Chloride Level 104 98-107 mmol/L Carbon Dioxide Level 31 21-32 mmol/L Anion Gap 6.0 3-11 mmol/L Blood Urea Nitrogen 35 7-18 mg/dl Creatinine 2.20 0.60-1.40 mg/dl Est Creatinine Clear Calc Drug Dose 36.0 ml/min Estimated GFR () 33.2 Estimated GFR (Non- 28.7 BUN/Creatinine Ratio 15.9 10-20 Random Glucose 86 70-99 mg/dl Calcium Level 8.5 8.5-10.1 mg/dl Total Bilirubin 3.8 0.2-1 mg/dl Aspartate Amino Transf (AST/SGOT) 31 15-37 U/L Alanine Aminotransferase (ALT/SGPT) 24 12-78 U/L Alkaline Phosphatase 153 45-117 U/L Total Protein 6.5 6.4-8.2 gm/dl Albumin 3.3 3.4-5.0 gm/dl Globulin 3.2 2.5-4.0 gm/dl Albumin/Globulin Ratio 1.0 0.9-2
[2017-02-27 19:45] VITALS: BP 111/71; PULSE 67; TEMP 36.9; O2SAT 92
[2017-02-27] MEDS: ZOLPIDEM TARTRATE 5 MG TAB PO PRN (21:00)
[2017-02-27] MEDS: CARVEDILOL 6.25 MG TAB PO SCH (21:00)
[2017-02-28] VITALS (9 sets, daily range): BP systolic 94–117; BP diastolic 52–89; PULSE 68–87; TEMP 36.4–36.8; O2SAT 90–96
[2017-02-28] MEDS: LEVOTHYROXINE 100 MCG TAB PO SCH (05:26)
[2017-02-28 08:20] LABS: HEMATOCRIT 31.8 % (42-52); MEAN CELL VOLUME 95.2 fL (80-100); MEAN CORPUSCULAR HEMOGLOBIN 29.3 pg (25-34); MEAN CORPUSCULAR HGB CONC 30.8 g/dl (32-36); PLATELET COUNT 529 K/uL (130-400); RED BLOOD COUNT 3.34 M/uL (4.7-6.1); WHITE BLOOD COUNT 9.89 K/uL (4.8-10.8)
[2017-02-28] MEDS: CHOLECALCIFEROL 1000 INTER.UNIT TAB PO SCH (08:29)
[2017-02-28] MEDS: ASPIRIN 81 MG ECTAB PO SCH (08:30)
[2017-02-28] MEDS: CARVEDILOL 6.25 MG TAB PO SCH ×2 (08:30→20:53)
[2017-02-28] MEDS: ALLOPURINOL 300 MG TAB PO SCH (08:30)
[2017-02-28] MEDS: HEPARIN SOD 5000 UNIT/0.5 ML CARP SQ SCH ×2 (08:30→20:54)
[2017-02-28] MEDS: SPIRONOLACTONE 25 MG TAB PO SCH (09:00)
[2017-02-28] MEDS: FUROSEMIDE INJ 80 MG in SYRINGE 0 ML IV SCH ×2 (09:00→20:52)
[2017-02-28] MEDS: ALUMINUM/MAGNESIUM/SIMETH (MAALOX MAX) 30 ML UDC PO PRN (10:22)
[2017-02-28 11:25] LABS: BUN/CREATININE RATIO 17.3 (10-20); CALCIUM 8.5 mg/dl (8.5-10.1); CREATININE 2.3 mg/dl (0.60-1.40); MAGNESIUM 2.6 mg/dl (1.8-2.4); POTASSIUM 4.1 mmol/L (3.5-5.1)
--- NOTE | 2017-02-28 14:18 | NEPHROLOGY CONSULTATION ---
DATE OF CONSULTATION: 02/28/2017 REASON FOR CONSULT: Acute renal failure with severe congestive heart failure. HISTORY OF PRESENT ILLNESS: The patient is a 71-year-old male with a history of congestive heart failure, both systolic as well as diastolic with an EF of 25%-30%, hypertension, and chronic kidney disease stage III. His baseline creatinine is not really established as he seems to be in chronic fluid overload and he does not seem to be taking Lasix on a regular basis. In any case, his creatinine in fluid overload states typically run in the mid 1s. He presented to the hospital yesterday for outpatient colonoscopy; however, the patient was found to be dyspneic with exertion with significant bilateral lower extremity swelling as well as jaundice. Colonoscopy was canceled and the patient was sent to the Emergency Department for further evaluation. According to the patient, lower extremity edema has been present and getting worse for the last few months and he was getting increasingly dyspneic as well as orthopneic. He denied having any chest pain, palpitations or weight gain, but I do not think he really checks his weight at home. He normally takes Lasix intermittently, but has not taken for the last few days. The patient does not have any history of liver disease to account for the jaundice. Yesterday, at the time of admission, creatinine was 1.9. This morning, it is slightly higher at 2.3. BUN is 40. Jaundice was present with a bilirubin of 4.8. This morning, slightly better at 3.1. He did have a very elevated BNP of 20,923 and a chest x-ray was also consistent with pulmonary vascular congestion. PAST MEDICAL AND SURGICAL HISTORY: Chronic kidney disease, stage III, baseline creatinine in the mid 1.5 range, fatty liver with a history of alcohol abuse in the past, hypokalemia, hypothyroidism, nonischemic cardiomyopathy with an ejection fraction of 25%-30%, coronary artery disease, history of splenomegaly, and history of cardiac catheterization. FAMILY HISTORY: Negative for renal disease. SOCIAL HISTORY: Current every day smoker. History of heavy alcohol abuse, last heavy drinking was in 2005. No drugs. Marital status is . He lives alone. He is retired. ALLERGIES: None. HOME MEDICATIONS: Included allopurinol, Coreg, vitamin D, Synthroid, and losartan. He was also supposed to take Lasix, but was not for the last few days. REVIEW OF SYSTEMS: As listed in the HPI. A total of 12 systems reviewed and otherwise negative. PHYSICAL EXAMINATION: GENERAL: Elderly white male, who is in mild respiratory distress. He is awake, alert, and oriented x3. VITAL SIGNS: Blood pressure 112/69 and saturation 93% on room air. HEENT: Mucous membrane is moist. NECK: Supple. Jugular venous distension present. RESPIRATORY: Decreased breath sounds. Occasional crackles at the bases. CARDIOVASCULAR: Distant heart sounds. No murmur, rubs or gallop. ABDOMEN: Obese. EXTREMITIES: Shows 2-3+ bilateral lower extremity pitting edema up to the upper thigh. SKIN: Warm and dry with chronic venous changes. X-ray showed CHF. LABORATORY TEST: Shows from this morning, sodium 140, potassium 4.1, BUN 40, and creatinine 2.3. Bilirubin down to 3.1. Alkaline phosphatase 171. Hemoglobin 9.8. Urine showed negative blood and negative protein. ASSESSMENT AND PLAN: Patient is a 71-year-old male with severe cardiomyopathy, now presenting with acute decompensated congestive heart failure as well as jaundice related with severe passive congestion. It is worth noting that we cannot really call his admission creatinine as baseline as that was in the setting of severe fluid overload, which obviously caused hemodilution and artificially makes the creatinine appear better than real. There is no question, he needs to be diuresed aggressively to get his symptoms better and to get closer to euvolemic status. Creatinine is rising because of the cardiorenal syndrome like picture, but this is acceptable and permissible and I would not cut down on the Lasix. Continue Lasix 80 mg IV twice daily. He seems to be making urine adequately. I agree with cardiology and not using Cozaar for the time being. Even the spironolactone may need to be held if creatinine continues to go up because that also affect the GFR to some extent. He made about 1800 mL of urine yesterday, which I do not believe is adequate. He needs to have urine at least 2-1/2-3 liters. Consider increasing the dose of Lasix and may even have to add metolazone. Thank you very much for the consult. [facility]
[2017-02-28] MEDS: CALCIUM CARBONATE 500 MG CHEWABLE PO PRN (14:31)
--- NOTE | 2017-02-28 15:06 | Cardiology Follow-Up ---
Subjective Subjective Date of Service: Feb 28, 2017. Pt evaluation today including: conversation w/ patient, physical exam, chart review, lab review, review of studies, review of inpatient medication list Additional Details: Pt seen and examined, oob in chair. States that his breathing has slightly improved since admission. Denies cp, palpitations, lightheadedness or dizziness. Tele reviewed: sinus rhythm without arrhythmias. Problem List Medical Problems: (1) Ambulatory dysfunction Status: Acute (2) Fluid overload Status: Acute (3) Generalized weakness Status: Acute (4) Jaundice Status: Acute (5) Kidney disease Status: Acute (6) Polyarticular arthritis Status: Acute (7) Shortness of breath Status: Acute (8) Symptomatic anemia Status: Acute Review of Systems Constitutional: + weakness, + fatigue Respiratory: + dyspnea on exertion, No see HPI, No cough, No sputum, No wheezing, No shortness of breath, No dyspnea at rest, No hemoptysis, No problem reported Cardiac: + edema, No see HPI, No chest pain, No orthopnea, No PND, No claudication, No palpitations, No problem reported Musculoskeletal: + joint pain Neurologic: + weakness, + balance problems Endo: + fatigue Objective Vital Signs Last Vital Signs Documentation Date Time Temp Pulse Resp B/P (MAP) Pulse Ox O2 Delivery O2 Flow Rate FiO2 02/28/17 14:37 36.4 87 20 116/60 (78) 92 Room Air Physical Exam: General Appearance: WD/WN, no apparent distress Eyes: bilateral eyes normal inspection, bilateral eyes PERRL, bilateral eyes EOMI ENT: normal ENT inspection, hearing grossly normal, pharynx normal Neck: supple, no adenopathy, thyroid normal, no JVD, no carotid bruits, trachea midline Respiratory/Chest: chest non-tender, no respiratory distress, no accessory muscle use, + decreased breath sounds Cardiovascular: regular rate, rhythm, + pertinent finding (distant, unable to apprecitate murmurs, rubs or gallops) Abdomen: non tender, soft Extremities: normal inspection, no calf tenderness, + pertinent finding (+2 b/ l LE edema to above the knee) 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 acute decompensated systolic heart failure unclear if diuresing well, unsure of accuracy of I/O's daily weights being used on different scales cont IV lasix 80mg bid and spironolactone appreciate nephrology input will consider possibly increasing lasix dosage or adding metolazone losartan held 2. new mitral regurgitation likely playing a component in decompensation follow 3. acute on chronic renal failure ?cardiorenal syndrome losartan held need to cont with diuresis clinically appreciate nephrology input 4. wide complex tachycardia aberrancy vs. ventricular tachycardia 5. severe NICM patient now agreeable to proceed with BiV ICD with underlying LBBB question is timing he is unsure how long he'd like to remain admitted, will discuss further will continue to diurese in the meantime. cont to monitor on tele
--- NOTE | 2017-02-28 15:17 | Progress Note ---
Internal Med Progress Note Date of Service: Feb 28, 2017. Provider Documentation: SUBJECTIVE: patient ambulatory. denies acute chest pain or acute shortness of breath. having short runs of vtach recorded but patient denies palpitations. have re- discussed with him about benefits of BIV ICD because his heart failure puts him at risk for arrthymia and sudden cardiac arrest but patient explains he is deferring decision to accept treatment based on costs. Have informed case management about his financial concerns. Lasix this AM held because of concern for hypotension OBJECTIVE: General Appearance: no apparent distress Head: normocephalic, atraumatic Eyes: PERRL, EOMI ENT: hearing grossly normal Neck: supple, no adenopathy, no JVD, trachea midline Respiratory/Chest: chest non-tender, no respiratory distress, no accessory muscle use, more clear lung sound bilaterally today Cardiovascular: regular rate, rhythm, no murmur Abdomen/GI: normal bowel sounds, non tender, soft Back: normal inspection, no CVA tenderness Extremities: no calf tenderness, some edema of lower extremities bilaterally, has hard skin on lower extremities likely from chronic skin changes due to recurrent lower extremity edema Neurologic: no motor/sensory deficits, alert, normal mood/affect, oriented x 3 ASSESSMENT & PLAN: Acute on chronic CHF with new mitral regurgitation TTE: left ventricle is moderately dilated. Ejection Fraction = 25-30%. severe global hypokinesis of the left ventricle. Cardiology had increase Lasix to 80 mg IV BID and added spirolactone, cardiology recommending to continue diuresis at same rate with the thoughts that the creatinine rise is due to poor renal perfusion from cardiorenal syndrome but requesting nephrology consult as per nephrology: patient made about 1800 mL of urine yesterday, which is inadequate. patient needs to have urine at least 2-1/2-3 liters. Consider increasing the dose of Lasix and may even have to add metolazone. will continue IV Lasix as 80 mg IV BID for now but adding metolazone 2.5 mg BID Hypokalemia resolved after repletion on standing potassium repletion and monitor potassium as patient on high doses of Lasix Wide complex tachycardia (aberrancy vs. ventricular tachycardia) -as per cardiology, patient qualifies for BIV ICD however has been declining, patient concerned about costs -on increased level of coreg Elevated indirect bilirubin, elevated alk phosphatase, mild jaundice -Ultrasound abdomen fairly benign: The liver is mildly enlarged and heterogeneous in echotexture. There is no intra or extrahepatic biliary ductal dilatation. No gallstones are identified. -GGT and G6PD and haptoglobin ordered but pending results -LDH 556 elevated suggestive of some hemolysis -peripheral smear: "overall findings are consistent with normocytic anemia with thrombocytosis" Normocytic anemia stable HTN: Normotensive, Continue home regimen CKD III: Monitor closely while on diuretics Hypothyroidism on Levothyroxine TSH 5.12, T4 8.6 Continue home dose of levothyroxine DVT Ppx: Heparin SQ Code status: FULL PCP: Dr. Blunt Dispo: Plan to return home once adequately diuresed on IV Lasix Vital Signs: Date Time Temp Pulse Resp B/P (MAP) Pulse Ox O2 Delivery O2 Flow Rate FiO2 02/28/17 14:37 36.4 87 20 116/60 (78) 92 Room Air 02/28/17 12:00 Room Air 02/28/17 09:15 83 112/69 (83) 02/28/17 09:10 83 94/52 (66) 02/28/17 08:00 93 Room Air 02/28/17 07:28 36.8 84 20 98/68 (78) 93 Room Air 02/28/17 04:00 36.4 68 16 108/58 (75) 90 02/28/17 04:00 Room Air 02/28/17 00:18 36.4 76 16 100/66 (77) 96 02/28/17 00:00 Room Air 02/27/17 20:00 Room Air 02/27/17 19:45 36.9 67 20 111/71 (84) 92 Room Air 02/27/17 16:00 Room Air Lab Results: Results Past 24 Hours Test 02/28/17 07:28 Range/Units White Blood Count 9.89 4.8-10.8 K/uL Red Blood Count 3.34 4.7-6.1 M/uL Hemoglobin 9.8 14.0-18.0 g/dL Hematocrit 31.8 42-52 % Mean Corpuscular Volume 95.2 80-100 fL Mean Corpuscular Hemoglobin 29.3 25-34 pg Mean Corpuscular Hemoglobin Concent 30.8 32-36 g/dl RDW Standard Deviation 60.7 36.4-46.3 fL RDW Coefficient of Variation 17.8 11.5-14.5 % Platelet Count 529 130-400 K/uL Mean Platelet Volume 12.0 7.4-10.4 fL Nucleated RBC Absolute Count (auto) 0.17 0-0 K/uL Nucleated Red Blood Cells % 1.7 % Sodium Level 140 136-145 mmol/L Potassium Level 4.1 3.5-5.1 mmol/L Chloride Level 103 98-107 mmol/L Carbon Dioxide Level 31 21-32 mmol/L Anion Gap 6.0 3-11 mmol/L Blood Urea Nitrogen 40 7-18 mg/dl Creatinine 2.30 0.60-1.40 mg/dl Est Creatinine Clear Calc Drug Dose 33.7 ml/min Estimated GFR () 31.5 Estimated GFR (Non- 27.2 BUN/Creatinine Ratio 17.3 10-20 Random Glucose 88 70-99 mg/dl Calcium Level 8.5 8.5-10.1 mg/dl Magnesium Level 2.6 1.8-2.4 mg/dl Total Bilirubin 3.1 0.2-1 mg/dl Aspartate Amino Transf (AST/SGOT) 33 15-37 U/L Alanine Aminotransferase (ALT/SGPT) 31 12-78 U/L Alkaline Phosphatase 171 45-117 U/L Total Protein 6.9 6.4-8.2 gm/dl Albumin 3.5 3.4-5.0 gm/dl Globulin 3.4 2.5-4.0 gm/dl Albumin/Globulin Ratio 1.0 0.9-2
[2017-02-28] MEDS: BACLOFEN 10 MG TAB PO PRN (15:55)
[2017-02-28] MEDS: METOLAZONE 2.5 MG TAB PO SCH (20:13)
[2017-03-01] VITALS (7 sets, daily range): BP systolic 103–138; BP diastolic 58–77; PULSE 41–101; TEMP 36.5–36.8; O2SAT 91–94
[2017-03-01] MEDS: ZOLPIDEM TARTRATE 5 MG TAB PO PRN (01:19)
[2017-03-01] MEDS: LEVOTHYROXINE 100 MCG TAB PO SCH (06:01)
[2017-03-01 08:05] LABS: HEMATOCRIT 32.3 % (42-52); MEAN CELL VOLUME 95.8 fL (80-100); MEAN CORPUSCULAR HEMOGLOBIN 28.8 pg (25-34); MEAN PLATELET VOLUME 12.1 fL (7.4-10.4); PLATELET COUNT 564 K/uL (130-400); RED BLOOD COUNT 3.37 M/uL (4.7-6.1); WHITE BLOOD COUNT 10.92 K/uL (4.8-10.8)
[2017-03-01 08:08] LABS: BUN/CREATININE RATIO 16.5 (10-20); CALCIUM 9.5 mg/dl (8.5-10.1); CREATININE 2.3 mg/dl (0.60-1.40); POTASSIUM 3.8 mmol/L (3.5-5.1)
[2017-03-01] MEDS: ALLOPURINOL 300 MG TAB PO SCH (08:37)
[2017-03-01] MEDS: CHOLECALCIFEROL 1000 INTER.UNIT TAB PO SCH (08:37)
[2017-03-01] MEDS: ASPIRIN 81 MG ECTAB PO SCH (08:38)
[2017-03-01] MEDS: HEPARIN SOD 5000 UNIT/0.5 ML CARP SQ SCH ×2 (08:39→20:09)
[2017-03-01] MEDS: METOLAZONE 2.5 MG TAB PO SCH ×2 (08:41→20:06)
[2017-03-01] MEDS: CARVEDILOL 6.25 MG TAB PO SCH ×2 (08:42→20:08)
[2017-03-01] MEDS: CALCIUM CARBONATE 500 MG CHEWABLE PO PRN ×2 (09:02→20:06)
[2017-03-01 09:20] LABS: BASOPHIL % 0.9 % (0-2); COMPLETE YES; EOSINOPHIL % 0.9 %; LYMPH ABS # 0.76 K/uL (1.2-3.4); META ABS # 0.19 K/uL (0-0); METAMYELOCYTE % 1.7 %; MYELOCYTE % 3.5 %; NEUTROPHILS % 76.4 %; POLYCHROMASIA 1+; TEAR DROP CELLS 2+
[2017-03-01] MEDS: FUROSEMIDE INJ 80 MG in SYRINGE 0 ML IV SCH ×2 (09:27→20:09)
[2017-03-01] MEDS: SPIRONOLACTONE 25 MG TAB PO SCH (09:28)
--- NOTE | 2017-03-01 12:59 | Cardiology Follow-Up ---
Subjective Subjective Date of Service: Mar 01, 2017. Pt evaluation today including: conversation w/ patient, physical exam, chart review, lab review, review of studies, review of inpatient medication list Additional Details: Pt seen and examined, states that his breathing is ok and that his lower extremity edema has significantly improved. Denies cp, palpitations, lightheadedness or dizziness. tele reviewed: sinus rhythm without arrhythmia. Problem List Medical Problems: (1) Ambulatory dysfunction Status: Acute (2) Fluid overload Status: Acute (3) Generalized weakness Status: Acute (4) Jaundice Status: Acute (5) Kidney disease Status: Acute (6) Polyarticular arthritis Status: Acute (7) Shortness of breath Status: Acute (8) Symptomatic anemia Status: Acute Review of Systems Constitutional: + weakness, + fatigue Respiratory: + dyspnea on exertion, No see HPI, No cough, No sputum, No wheezing, No shortness of breath, No dyspnea at rest, No hemoptysis, No problem reported Cardiac: + edema, No see HPI, No chest pain, No orthopnea, No PND, No claudication, No palpitations, No problem reported Musculoskeletal: + joint pain Neurologic: + weakness, + balance problems Endo: + fatigue Objective Vital Signs Last Vital Signs Documentation Date Time Temp Pulse Resp B/P (MAP) Pulse Ox O2 Delivery O2 Flow Rate FiO2 03/01/17 11:20 36.7 70 20 138/77 (97) 94 Room Air Physical Exam: General Appearance: WD/WN, no apparent distress Eyes: bilateral eyes normal inspection, bilateral eyes PERRL, bilateral eyes EOMI ENT: normal ENT inspection, hearing grossly normal, pharynx normal Neck: supple, no adenopathy, thyroid normal, no JVD, no carotid bruits, trachea midline Respiratory/Chest: chest non-tender, no respiratory distress, no accessory muscle use, + decreased breath sounds Cardiovascular: regular rate, rhythm, + pertinent finding (distant, unable to apprecitate murmurs, rubs or gallops) Abdomen: non tender, soft Extremities: normal inspection, no calf tenderness, + pertinent finding (+2 b/ l LE edema to above the knee) Neurologic/Psychiatric: bleach packer II-XII nml as tested, no motor/sensory deficits, alert, normal mood/affect, oriented x 3 Skin: normal color, warm/dry, no rash Lymphatic: no adenopathy Assessment and Plan 1. acute decompensated systolic heart failure unclear if diuresing well, unsure of accuracy of I/O's but patient states that he is urinating frequently daily weights being used on different scales cont IV lasix 80mg bid and spironolactone appreciate nephrology input will consider possibly increasing lasix dosage or adding metolazone losartan held 2. new mitral regurgitation likely playing a component in decompensation follow 3. acute on chronic renal failure ?cardiorenal syndrome losartan held need to cont with diuresis clinically appreciate nephrology input 4. wide complex tachycardia aberrancy vs. ventricular tachycardia 5. severe NICM patient now agreeable to proceed with BiV ICD with underlying LBBB question is timing he is now agreeable to remain admitted for medical optimization and BiV ICD implant, likely for 03/03 cont to monitor on tele
[2017-03-01] MEDS ORDERED: ALPRAZOLAM 0.25 MG TAB PO PRN (13:30)
[2017-03-01] MEDS: ALUMINUM/MAGNESIUM/SIMETH (MAALOX MAX) 30 ML UDC PO PRN (14:21)
--- NOTE | 2017-03-01 18:55 | Progress Note ---
Internal Med Progress Note Date of Service: Mar 01, 2017. Provider Documentation: SUBJECTIVE: patient ambulatory. denies acute chest pain or acute shortness of breath. having short runs of vtach recorded but patient denies palpitations. patient has agreed to BIV ICD placement by cardiology which plans to perform this procedure on 03/03/17 OBJECTIVE: General Appearance: no apparent distress Head: normocephalic, atraumatic Eyes: EOMI ENT: hearing grossly normal Neck: supple, no adenopathy, no JVD, trachea midline Respiratory/Chest: chest non-tender, no respiratory distress, no accessory muscle use, more clear lung sound bilaterally today Cardiovascular: regular rate, rhythm, no murmur Abdomen/GI: normal bowel sounds, non tender, soft Back: normal inspection, no CVA tenderness Extremities: no calf tenderness, some edema of lower extremities bilaterally, has hard skin on lower extremities likely from chronic skin changes due to recurrent lower extremity edema Neurologic: no motor/sensory deficits, alert, normal mood/affect, oriented x 3 ASSESSMENT & PLAN: Acute on chronic CHF with new mitral regurgitation TTE: left ventricle is moderately dilated. Ejection Fraction = 25-30%. severe global hypokinesis of the left ventricle. Cardiology had increase Lasix to 80 mg IV BID and added spirolactone, cardiology recommending to continue diuresis at same rate with the thoughts that the creatinine rise is due to poor renal perfusion from cardiorenal syndrome as per recent nephrology consult note, patient benefits from IV Lasix as 80 mg IV BID, and metolazone IV Lasix 80 mg BID with metolazone 2.5 mg BID History of gout: patient reports gout flare exacerbated by metolazone in the past, will send uric acid level while on metolazone Hypokalemia resolved after repletion on standing potassium repletion and monitor potassium as patient on high doses of Lasix Wide complex tachycardia (aberrancy vs. ventricular tachycardia) -on coreg -as per cardiology, patient qualifies for BIV ICD, patient has agreed to the procedure planned for 03/03/17 Elevated indirect bilirubin, elevated alk phosphatase, mild jaundice -Ultrasound abdomen fairly benign: The liver is mildly enlarged and heterogeneous in echotexture. There is no intra or extrahepatic biliary ductal dilatation. No gallstones are identified. -GGT and G6PD and haptoglobin ordered but pending results -LDH 556 elevated suggestive of some hemolysis -peripheral smear: "overall findings are consistent with normocytic anemia with thrombocytosis" Normocytic anemia stable HTN: Normotensive, Continue home regimen CKD III: Monitor closely while on diuretics Hypothyroidism on Levothyroxine TSH 5.12, T4 8.6 Continue home dose of levothyroxine DVT Ppx: Heparin SQ Code status: FULL PCP: Dr. Blunt Dispo: Plan to return home once adequately diuresed and or BIV ICD placed Vital Signs: Date Time Temp Pulse Resp B/P (MAP) Pulse Ox O2 Delivery O2 Flow Rate FiO2 03/01/17 16:00 Room Air 03/01/17 15:47 36.6 81 16 128/61 (83) 92 Room Air 03/01/17 12:00 Room Air 03/01/17 11:20 36.7 70 20 138/77 (97) 94 Room Air 03/01/17 08:40 101 115/69 (84) 03/01/17 08:00 Room Air 03/01/17 07:37 36.7 87 20 103/58 (73) 92 Room Air 03/01/17 05:17 36.5 95 16 104/64 (77) 91 Room Air 03/01/17 04:00 Room Air 03/01/17 00:06 36.8 82 18 115/72 (86) 93 Room Air 03/01/17 00:00 Room Air 02/28/17 20:54 84 18 117/89 (98) 94 Room Air 02/28/17 20:00 Room Air 02/28/17 19:16 36.6 82 18 116/61 (79) 94 Room Air Lab Results: Results Past 24 Hours Test 03/01/17 07:13 Range/Units White Blood Count 10.92 4.8-10.8 K/uL Red Blood Count 3.37 4.7-6.1 M/uL Hemoglobin 9.7 14.0-18.0 g/dL Hematocrit 32.3 42-52 % Mean Corpuscular Volume 95.8 80-100 fL Mean Corpuscular Hemoglobin 28.8 25-34 pg Mean Corpuscular Hemoglobin Concent 30.0 32-36 g/dl Platelet Count 564 130-400 K/uL Mean Platelet Volume 12.1 7.4-10.4 fL RDW Standard Deviation 62.1 36.4-46.3 fL RDW Coefficient of Variation 17.9 11.5-14.5 % Nucleated RBC Absolute Count (auto) 0.07 0-0 K/uL Neutrophils % (Manual) 76.4 % Lymphocytes % (Manual) 7.0 % Monocytes % (Manual) 9.6 % Eosinophils % (Manual) 0.9 % Basophils % (Manual) 0.9 0-2 % Metamyelocytes % 1.7 % Myelocytes % 3.5 % Nucleated Red Blood Cells % 0.7 % Neutrophils # (Manual) 8.34 1.4-6.5 K/uL Total Absolute Neutrophils 8.34 1.4-6.5 K/uL Lymphocytes # (Manual) 0.76 1.2-3.4 K/uL Total Absolute Lymphocytes 0.76 1.2-3.4 K/uL Monocytes # (Manual) 1.05 0.11-0.59 K/uL Eosinophils # (Manual) 0.10 0-0.5 K/uL Basophils # (Manual) 0.10 0-0.2 K/uL Metamyelocytes # 0.19 0-0 K/uL Myelocytes # 0.38 0-0 K/uL Polychromasia 1+ Tear Drop Cells 2+ Sodium Level 140 136-145 mmol/L Potassium Level 3.8 3.5-5.1 mmol/L Chloride Level 100 98-107 mmol/L Carbon Dioxide Level 32 21-32 mmol/L Anion Gap 7.0 3-11 mmol/L Blood Urea Nitrogen 38 7-18 mg/dl Creatinine 2.30 0.60-1.40 mg/dl Est Creatinine Clear Calc Drug Dose 33.6 ml/min Estimated GFR () 31.5 Estimated GFR (Non- 27.2 BUN/Creatinine Ratio 16.5 10-20 Random Glucose 105 70-99 mg/dl Calcium Level 9.5 8.5-10.1 mg/dl Total Bilirubin 3.0 0.2-1 mg/dl Aspartate Amino Transf (AST/SGOT) 31 15-37 U/L Alanine Aminotransferase (ALT/SGPT) 27 12-78 U/L Alkaline Phosphatase 164 45-117 U/L Total Protein 7.1 6.4-8.2 gm/dl Albumin 3.6 3.4-5.0 gm/dl Globulin 3.5 2.5-4.0 gm/dl Albumin/Globulin Ratio 1.0 0.9-2
[2017-03-01] MEDS: BACLOFEN 10 MG TAB PO PRN (20:20)
[2017-03-02] VITALS (10 sets, daily range): BP systolic 97–143; BP diastolic 43–81; PULSE 68–95; TEMP 36.4–36.6; O2SAT 91–95
[2017-03-02] MEDS ORDERED: ALPRAZOLAM 0.5 MG TAB PO STA (05:23)
[2017-03-02] MEDS: LEVOTHYROXINE 100 MCG TAB PO SCH (05:42)
[2017-03-02] MEDS: BACLOFEN 10 MG TAB PO PRN (05:42)
[2017-03-02 06:36] LABS: BASO % 0.1 %; BASO ABS # 0.01 K/uL (0-0.2); COMPLETE YES; EOS % 0.6 %; HEMATOCRIT 34.7 % (42-52); IG% 1.4 %; LYMPH % 11.8 %; LYMPH ABS # 1.62 K/uL (1.2-3.4); MEAN CELL VOLUME 95.1 fL (80-100); MEAN CORPUSCULAR HGB CONC 30.5 g/dl (32-36); MEAN PLATELET VOLUME 11.9 fL (7.4-10.4); NEUT % 80.1 %; PLATELET COUNT 644 K/uL (130-400); RED BLOOD COUNT 3.65 M/uL (4.7-6.1); WHITE BLOOD COUNT 13.75 K/uL (4.8-10.8)
[2017-03-02 07:05] LABS: ALT/SGPT 28 U/L (12-78); AST/SGOT 23 U/L (15-37); BLOOD UREA NITROGEN 44 mg/dl (7-18); BUN/CREATININE RATIO 16.8 (10-20); CALCIUM 9.2 mg/dl (8.5-10.1); CARBON DIOXIDE 30 mmol/L (21-32); CHLORIDE 94 mmol/L (98-107); GLUCOSE 98 mg/dl (70-99); POTASSIUM 3.9 mmol/L (3.5-5.1); SODIUM 134 mmol/L (136-145)
[2017-03-02 07:10] LABS: ALKALINE PHOSPHATASE 160 U/L (45-117)
[2017-03-02] MEDS: FUROSEMIDE INJ 80 MG in SYRINGE 0 ML IV SCH ×2 (08:54→16:51)
[2017-03-02] MEDS: CHOLECALCIFEROL 1000 INTER.UNIT TAB PO SCH (08:55)
[2017-03-02] MEDS: ASPIRIN 81 MG ECTAB PO SCH (08:56)
[2017-03-02] MEDS: ALLOPURINOL 300 MG TAB PO SCH (08:58)
[2017-03-02] MEDS: HEPARIN SOD 5000 UNIT/0.5 ML CARP SQ SCH ×2 (08:58→20:29)
[2017-03-02] MEDS: SPIRONOLACTONE 25 MG TAB PO SCH (08:59)
[2017-03-02] MEDS: CARVEDILOL 6.25 MG TAB PO SCH ×2 (09:00→20:31)
--- NOTE | 2017-03-02 09:20 | Nephrology Progress Note ---
Nephrology Progress Note Date of Service: Mar 02, 2017. Subjective had anxiety overnight needing extra benzo dose; creat a bit worse today; pt c/o fatigue, poor sleep; denies sob, n/v, voiding difficulties; states he thinks edema improving Objective Date Time Temp Pulse Resp B/P (MAP) Pulse Ox O2 Delivery O2 Flow Rate FiO2 03/02/17 09:03 78 110/52 (71) 03/02/17 06:58 36.4 76 20 103/58 (73) 95 Room Air 03/02/17 04:00 36.5 73 16 143/81 (101) 94 Room Air 03/02/17 04:00 Room Air 03/02/17 00:17 36.5 82 16 102/64 (77) 91 Room Air 03/02/17 00:00 Room Air 03/01/17 20:20 36.5 41 18 132/69 (90) 94 Room Air 03/01/17 20:00 Room Air 03/01/17 16:00 Room Air 03/01/17 15:47 36.6 81 16 128/61 (83) 92 Room Air 03/01/17 12:00 Room Air 03/01/17 11:20 36.7 70 20 138/77 (97) 94 Room Air Physical Exam: GENERAL: Elderly white male, no resp or other distress, lying flat on RA HEENT: Mucous membrane moist. NECK: Supple. RESPIRATORY: Decreased breath sounds khalida at bases; no crackles today CARDIOVASCULAR: Distant heart sounds. No murmur, rubs or gallop. RRR ABDOMEN: Obese. soft NT no obvious fluid wave, no lilly EXTREMITIES: 1+ bilateral lower extremity pitting edema up to the knee SKIN: Warm and dry with chronic venous changes. NEURO: duarte, fluent though slightly delayed speech Current Inpatient Medications Medications (Trade) Dose Ordered Sig/Lisa Route Start Time Stop Time Status Last Admin Dose Admin Heparin Sodium (Porcine) (Heparin Sq 5000 Unit/0.5ml) 5,000 unit Q12 SQ 02/25/17 21:00 03/27/17 20:59 Zolpidem Tartrate (Ambien Tab) 5 mg HSZ PRN PO 02/25/17 16:15 03/27/17 16:14 03/01/17 01:19 5 MG Allopurinol (Zyloprim Tab) 300 mg QAM PO 02/26/17 09:00 03/28/17 08:59 03/02/17 08:58 300 MG Aspirin (Ecotrin Tab) 81 mg DAILY PO 02/26/17 09:00 03/28/17 08:59 03/02/17 08:56 81 MG Baclofen (Lioresal Tab) 10 mg TID PRN PO 02/25/17 16:30 03/27/17 16:29 03/02/17 05:42 10 MG Cholecalciferol (Vitamin D Tab) 1,000 inter.unit QAM PO 02/26/17 09:00 03/28/17 08:59 03/02/17 08:55 1,000 INTER.UNIT Levothyroxine Sodium (Synthroid Tab) 100 mcg DAILYBB PO 02/26/17 06:30 03/28/17 06:59 03/02/17 05:42 100 MCG Losartan Potassium (coZAAR TAB) 12.5 mg QAM PO 02/26/17 09:00 03/28/17 08:59 Future Hold 02/26/17 08:56 12.5 MG Prednisone (PredniSONE TAB) 20 mg DAILY PRN PO 02/25/17 16:30 03/27/17 16:29 03/01/17 08:37 20 MG Trazodone HCl (Desyrel Tab) 50 mg HS PRN PO 02/25/17 16:30 03/27/17 16:29 Calcium Carbonate (Tums Chew Tab) 500 mg QID PRN PO 02/25/17 22:00 03/27/17 21:59 03/01/17 20:06 500 MG Al Hydrox/Mg Hydrox/Simethicone (Maalox Max Susp) 15 ml Q6H PRN PO 02/26/17 11:00 03/28/17 10:59 03/01/17 14:21 15 ML Spironolactone (Aldactone Tab) 25 mg QAM PO 02/27/17 09:00 03/29/17 08:59 03/02/17 08:59 25 MG Furosemide 80 mg/ Syringe 8 ml @ 4 mls/min BID IV 02/26/17 21:00 03/28/17 20:59 03/02/17 08:54 4 MLS/MIN Carvedilol (Coreg Tab) 6.25 mg BID PO 02/27/17 21:00 11/3/17 20:59 03/02/17 09:00 6.25 MG Metolazone (Zaroxolyn Tab) 2.5 mg BID@0830,2029 PO 02/28/17 20:30 03/30/17 20:29 Future Hold 03/01/17 08:41 2.5 MG Alprazolam (Xanax Tab) 0.25 mg Q6H PRN PO 03/01/17 13:30 03/31/17 13:29 03/02/17 02:59 0.25 MG Last 24 Hours Test 03/02/17 06:09 White Blood Count 13.75 K/uL Red Blood Count 3.65 M/uL Hemoglobin 10.6 g/dL Hematocrit 34.7 % Mean Corpuscular Volume 95.1 fL Mean Corpuscular Hemoglobin 29.0 pg Mean Corpuscular Hemoglobin Concent 30.5 g/dl Platelet Count 644 K/uL Mean Platelet Volume 11.9 fL Neutrophils (%) (Auto) 80.1 % Lymphocytes (%) (Auto) 11.8 % Monocytes (%) (Auto) 6.0 % Eosinophils (%) (Auto) 0.6 % Basophils (%) (Auto) 0.1 % Neutrophils # (Auto) 11.03 K/uL Lymphocytes # (Auto) 1.62 K/uL Monocytes # (Auto) 0.82 K/uL Eosinophils # (Auto) 0.08 K/uL Basophils # (Auto) 0.01 K/uL RDW Standard Deviation 59.9 fL RDW Coefficient of Variation 17.6 % Immature Granulocyte % (Auto) 1.4 % Immature Granulocyte # (Auto) 0.19 K/uL Sodium Level 134 mmol/L Potassium Level 3.9 mmol/L Chloride Level 94 mmol/L Carbon Dioxide Level 30 mmol/L Anion Gap 10.0 mmol/L Blood Urea Nitrogen 44 mg/dl Creatinine 2.60 mg/dl Est Creatinine Clear Calc Drug Dose 29.7 ml/min Estimated GFR () 27.1 Estimated GFR (Non- 23.4 BUN/Creatinine Ratio 16.8 Random Glucose 98 mg/dl Uric Acid 8.0 mg/dl Calcium Level 9.2 mg/dl Total Bilirubin 3.2 mg/dl Aspartate Amino Transf (AST/SGOT) 23 U/L Alanine Aminotransferase (ALT/SGPT) 28 U/L Alkaline Phosphatase 160 U/L Pro-B-Type Natriuretic Peptide > 09160 pg/ml Total Protein 7.9 gm/dl Albumin 3.9 gm/dl Globulin 4.0 gm/dl Albumin/Globulin Ratio 1.0 Assessment & Plan 71-year-old male with severe cardiomyopathy and baseline creatinine 1.7-2.2 as of late 2015 admitted 02/25 w/ acute decompensated systolic heart failure as well as jaundice attributed to severe passive congestion. Also w/ new mitral rgg on presentation. Other PMH includes DM, frequently symptomatic gout ANAMIKA on CKD 4 < > cardiorenal syndrome, large obligate diuretics. Pt w/ exacerbation of chronic volume overload>> admission creatinine number at baseline however actual renal function w/ this creat in the setting of severe fluid overload appears better than it actually is; high risk for esrd in his lifetime -down 4.7 kg from admission -hold am metolazone for today; look to restart bid tomorrow -cont current lasix dose (retimed for 2nd dose at 1700 not 2100 for better sleep ); may need to increase further this admission -cont current spironolactone -one time metolazone ordered for 1630 -cont to hold ARB -daily bmp -strict I/O and daily standing wt to cont ->ordered fluid limit 1.2 L NICM -for BiVCD likely 03/03 appreciate c/s will follow with you
[2017-03-02] MEDS ORDERED: METOLAZONE 2.5 MG TAB PO ONE ×2 (10:30→16:30)
[2017-03-02] MEDS ORDERED: NURSING VERBAL MED ORDER ONE (12:00)
--- NOTE | 2017-03-02 15:09 | Cardiology Follow-Up ---
Subjective Subjective Date of Service: Mar 02, 2017. Pt evaluation today including: conversation w/ patient, physical exam, chart review, lab review, review of studies, review of inpatient medication list Additional Details: Pt seen and examined, states that he's feeling ok. Still anxious with some sob. Denies cp, palpitations, lightheadedness or dizziness. Tele reviewed: sinus rhythm without arrhythmia. Problem List Medical Problems: (1) Ambulatory dysfunction Status: Acute (2) Fluid overload Status: Acute (3) Generalized weakness Status: Acute (4) Jaundice Status: Acute (5) Kidney disease Status: Acute (6) Polyarticular arthritis Status: Acute (7) Shortness of breath Status: Acute (8) Symptomatic anemia Status: Acute Review of Systems Constitutional: + weakness, + fatigue Respiratory: + dyspnea on exertion, No see HPI, No cough, No sputum, No wheezing, No shortness of breath, No dyspnea at rest, No hemoptysis, No problem reported Cardiac: + edema, No see HPI, No chest pain, No orthopnea, No PND, No claudication, No palpitations, No problem reported Musculoskeletal: + joint pain Neurologic: + weakness, + balance problems Endo: + fatigue Objective Vital Signs Last Vital Signs Documentation Date Time Temp Pulse Resp B/P (MAP) Pulse Ox O2 Delivery O2 Flow Rate FiO2 03/02/17 15:03 36.5 91 20 115/64 (81) 95 Room Air Physical Exam: General Appearance: WD/WN, no apparent distress Eyes: bilateral eyes normal inspection, bilateral eyes PERRL, bilateral eyes EOMI ENT: normal ENT inspection, hearing grossly normal, pharynx normal Neck: supple, no adenopathy, thyroid normal, no JVD, no carotid bruits, trachea midline Respiratory/Chest: chest non-tender, no respiratory distress, no accessory muscle use, + decreased breath sounds Cardiovascular: regular rate, rhythm, + pertinent finding (distant, unable to apprecitate murmurs, rubs or gallops) Abdomen: non tender, soft Extremities: normal inspection, no calf tenderness, + pertinent finding (+2 b/ l LE edema to above the knee) Neurologic/Psychiatric: die welder II-XII nml as tested, no motor/sensory deficits, alert, normal mood/affect, oriented x 3 Skin: normal color, warm/dry, no rash Lymphatic: no adenopathy Assessment and Plan 1. acute decompensated systolic heart failure unclear if diuresing well, unsure of accuracy of I/O's but patient states that he is urinating frequently daily weights being used on different scales cont IV lasix 80mg bid and spironolactone appreciate nephrology input will follow their diuretic recommendations will postpone BiV ICD implant until medically optimized, not this hospitalization will arrange for f/u as outpatient 2. new mitral regurgitation likely playing a component in decompensation follow 3. acute on chronic renal failure ?cardiorenal syndrome losartan held need to cont with diuresis clinically appreciate nephrology input 4. wide complex tachycardia aberrancy vs. ventricular tachycardia 5. severe NICM patient now agreeable to proceed with BiV ICD with underlying LBBB question is timing will perform as an outpatient will d/c tele
--- NOTE | 2017-03-02 18:23 | Progress Note ---
Internal Med Progress Note Date of Service: Mar 02, 2017. Provider Documentation: SUBJECTIVE: patient ambulatory. reports improvements in leg swelling OBJECTIVE: General Appearance: no apparent distress Head: normocephalic, atraumatic Face: jaundice Eyes: EOMI ENT: hearing grossly normal Neck: supple, no adenopathy, no JVD, trachea midline Respiratory/Chest: on room air, no audible wheezes Cardiovascular: regular rate, rhythm, no murmur Abdomen/GI: normal bowel sounds, non tender, soft Back: normal inspection, no CVA tenderness Extremities: no calf tenderness, reduced edema of lower extremities bilaterally , has hard skin on lower extremities likely from chronic skin changes due to recurrent lower extremity edema Neurologic: no motor/sensory deficits, alert, normal mood/affect, oriented x 3 ASSESSMENT & PLAN: 71 year old M sent from colonoscopy outpatient because of fluid overload secondary to poor cardiac ejection fraction Acute on chronic CHF with new mitral regurgitation TTE: left ventricle is moderately dilated. Ejection Fraction = 25-30%. severe global hypokinesis of the left ventricle. Cardiology had increase Lasix to 80 mg IV BID and added spirolactone, cardiology recommending to continue diuresis at same rate with the thoughts that the creatinine rise is due to poor renal perfusion from cardiorenal syndrome nephrology fashion consultant selling adjusting IV Lasix and metolazone, ordered fluid limit 1.2 L History of gout: patient reports gout flare exacerbated by metolazone in the past, uric acid level 8, plan to minimize length of duration of metolazone use to prevent gout flare Hypokalemia resolved after repletion on standing potassium repletion and monitor potassium as patient on high doses of Lasix Wide complex tachycardia (aberrancy vs. ventricular tachycardia) -on coreg -as per cardiology, patient qualifies for BIV ICD, likely to be performed as outpatient Elevated indirect bilirubin, elevated alk phosphatase, jaundice -haptoglobin 185, LDH 556 elevated suggestive of some hemolysis -both alkaline phosphatase 120 to 171 and GGT 92 (reference range 3 to 70) are mildly elevated suggestive possibility of disease of the bile ducts and in some liver diseases -however Ultrasound abdomen fairly benign: The liver is mildly enlarged and heterogeneous in echotexture. There is no intra or extrahepatic biliary ductal dilatation. No gallstones are identified. -peripheral smear: "overall findings are consistent with normocytic anemia with thrombocytosis" -G6PD 14.1 not deficient (reference range 4.6 to 13.5) -may need further evaluation as oupatient with primary care doctor from hemoncology and GI perspective as these findings appear inconclusive -placed inpatient consult for hemoncology and GI for further recommendations -patient had been following GI outpatient for colonoscopy but could not get procedure due to fluid overload Normocytic anemia stable Leukocytosis: unclear as to why WBC rising, patient afebrile, will send ESR and CRP if there is inflammatory process HTN: Normotensive, Continue home regimen CKD III: Monitor closely while on diuretics Hypothyroidism on Levothyroxine TSH 5.12, T4 8.6 Continue home dose of levothyroxine DVT Ppx: Heparin SQ Code status: FULL PCP: Dr. Blunt Dispo: Plan to return home once adequately diuresed Vital Signs: Date Time Temp Pulse Resp B/P (MAP) Pulse Ox O2 Delivery O2 Flow Rate FiO2 03/02/17 16:55 36.6 85 16 97/66 (76) 94 Room Air 03/02/17 15:40 Room Air 03/02/17 15:28 36.5 91 20 95 03/02/17 15:03 36.5 91 20 115/64 (81) 95 Room Air 03/02/17 12:00 Room Air 03/02/17 11:46 36.4 68 20 112/43 (66) 92 Room Air 03/02/17 09:03 78 110/52 (71) 03/02/17 08:00 Room Air 03/02/17 06:58 36.4 76 20 103/58 (73) 95 Room Air 03/02/17 04:00 36.5 73 16 143/81 (101) 94 Room Air 03/02/17 04:00 Room Air 03/02/17 00:17 36.5 82 16 102/64 (77) 91 Room Air 03/02/17 00:00 Room Air 03/01/17 20:20 36.5 41 18 132/69 (90) 94 Room Air 03/01/17 20:00 Room Air Lab Results: Results Past 24 Hours Test 03/02/17 06:09 Range/Units White Blood Count 13.75 4.8-10.8 K/uL Red Blood Count 3.65 4.7-6.1 M/uL Hemoglobin 10.6 14.0-18.0 g/dL Hematocrit 34.7 42-52 % Mean Corpuscular Volume 95.1 80-100 fL Mean Corpuscular Hemoglobin 29.0 25-34 pg Mean Corpuscular Hemoglobin Concent 30.5 32-36 g/dl Platelet Count 644 130-400 K/uL Mean Platelet Volume 11.9 7.4-10.4 fL Neutrophils (%) (Auto) 80.1 % Lymphocytes (%) (Auto) 11.8 % Monocytes (%) (Auto) 6.0 % Eosinophils (%) (Auto) 0.6 % Basophils (%) (Auto) 0.1 % Neutrophils # (Auto) 11.03 1.4-6.5 K/uL Lymphocytes # (Auto) 1.62 1.2-3.4 K/uL Monocytes # (Auto) 0.82 0.11-0.59 K/uL Eosinophils # (Auto) 0.08 0-0.5 K/uL Basophils # (Auto) 0.01 0-0.2 K/uL RDW Standard Deviation 59.9 36.4-46.3 fL RDW Coefficient of Variation 17.6 11.5-14.5 % Immature Granulocyte % (Auto) 1.4 % Immature Granulocyte # (Auto) 0.19 0.00-0.02 K/uL Sodium Level 134 136-145 mmol/L Potassium Level 3.9 3.5-5.1 mmol/L Chloride Level 94 98-107 mmol/L Carbon Dioxide Level 30 21-32 mmol/L Anion Gap 10.0 3-11 mmol/L Blood Urea Nitrogen 44 7-18 mg/dl Creatinine 2.60 0.60-1.40 mg/dl Est Creatinine Clear Calc Drug Dose 29.7 ml/min Estimated GFR () 27.1 Estimated GFR (Non- 23.4 BUN/Creatinine Ratio 16.8 10-20 Random Glucose 98 70-99 mg/dl Uric Acid 8.0 2.6-7.2 mg/dl Calcium Level 9.2 8.5-10.1 mg/dl Total Bilirubin 3.2 0.2-1 mg/dl Aspartate Amino Transf (AST/SGOT) 23 15-37 U/L Alanine Aminotransferase (ALT/SGPT) 28 12-78 U/L Alkaline Phosphatase 160 45-117 U/L Pro-B-Type Natriuretic Peptide > 05366 0-900 pg/ml Total Protein 7.9 6.4-8.2 gm/dl Albumin 3.9 3.4-5.0 gm/dl Globulin 4.0 2.5-4.0 gm/dl Albumin/Globulin Ratio 1.0 0.9-2
[2017-03-03] MEDS: LEVOTHYROXINE 100 MCG TAB PO SCH (05:52)
[2017-03-03 06:58] VITALS: BP 113/61; PULSE 81; TEMP 36.6; O2SAT 94
[2017-03-03 07:42] LABS: BASO % 0.2 %; BASO ABS # 0.02 K/uL (0-0.2); COMPLETE YES; EOS % 1.2 %; HEMATOCRIT 34.2 % (42-52); IG% 1.9 %; LYMPH % 15.6 %; LYMPH ABS # 1.88 K/uL (1.2-3.4); MEAN CELL VOLUME 94.5 fL (80-100); MEAN CORPUSCULAR HEMOGLOBIN 29.6 pg (25-34); MEAN CORPUSCULAR HGB CONC 31.3 g/dl (32-36); MEAN PLATELET VOLUME 11.4 fL (7.4-10.4); MONO % 6.5 %; NEUT % 74.6 %; PLATELET COUNT 630 K/uL (130-400); RED BLOOD COUNT 3.62 M/uL (4.7-6.1); WHITE BLOOD COUNT 12.08 K/uL (4.8-10.8)
[2017-03-03] MEDS: SPIRONOLACTONE 25 MG TAB PO SCH (08:18)
[2017-03-03] MEDS: CARVEDILOL 6.25 MG TAB PO SCH (08:18)
[2017-03-03] MEDS: ALLOPURINOL 300 MG TAB PO SCH (08:18)
[2017-03-03] MEDS: CHOLECALCIFEROL 1000 INTER.UNIT TAB PO SCH (08:18)
[2017-03-03] MEDS: ASPIRIN 81 MG ECTAB PO SCH (08:18)
[2017-03-03] MEDS: FUROSEMIDE INJ 80 MG in SYRINGE 0 ML IV SCH (08:19)
[2017-03-03 08:21] LABS: BUN/CREATININE RATIO 20.3 (10-20); C-REACTIVE PROTEIN 0.69 mg/dl (0-0.29); CALCIUM 9.2 mg/dl (8.5-10.1); CREATININE 2.6 mg/dl (0.60-1.40); POTASSIUM 3.6 mmol/L (3.5-5.1)
[2017-03-03] MEDS: HEPARIN SOD 5000 UNIT/0.5 ML CARP SQ SCH (08:22)
--- NOTE | 2017-03-03 10:18 | Gastrointestinal Consultation ---
Gastrointestinal Consultation Date of Consultation: Mar 03, 2017 Attending Physician: Dr. Sahu Consulting Physician: Dr. Daniels Reason for Consultation: Jaundice, ? biliary causes History of Present Illness Patient is a 71 year old male patient with a hx of CHF, EF 30%, CAD, CKD-3, admitted on 02.25 in fluid overload. GI is consulted for jaundice, ? biliary causes. The pt denies any prior jaundice, any abdominal pain, nausea, or pruritus. Imaging during this admission suggests mildly enlarged liver, slightly heterogeneous in echotexture, there is no intrahepatic biliary ductal dilation in the main portal vein is patent. The gallbladder is normal without stones or wall thickening. He does not drink alcohol. Past Medical/Surgical History Medical Problems: (1) Ambulatory dysfunction Status: Acute (2) Fluid overload Status: Acute (3) Generalized weakness Status: Acute (4) Jaundice Status: Acute (5) Kidney disease Status: Acute (6) Polyarticular arthritis Status: Acute (7) Shortness of breath Status: Acute (8) Symptomatic anemia Status: Acute Past Medical History: 1. CHF 2. CKD-3 3. Hypothyroidism 4. Fatty liver 5. Splenomegaly Past Surgical History: 1. Cardiac cath 2. Multiple colonoscopies for history of colonic polyps Family History Asthma FH: cancer FH: heart disease Social History Smoking Status: Current Every Day Smoker Alcohol Use: none Drug Use: none Marital Status: Housing Status: lives alone Occupation Status: retired Allergies Coded Allergies: No Known Allergies (Unverified , 02/25/17) Current Medications Home Meds and Scripts Medications Dose Route/Sig Max Daily Dose Days Date Category Aspirin 81 (Aspirin) 81 Mg Tab 1 Tab PO 02/25/17 Reported [arthro joint] 02/25/17 Reported Coreg (Carvedilol) 3.125 Mg Tab 3.125 Mg PO BID 02/17/17 Reported Vitamin D (Cholecalciferol) 1,000 Unit Tab 1 Tab PO QAM 02/17/17 Reported Zyloprim (Allopurinol) 300 Mg Tab 300 Mg PO QAM 11/19/15 Reported Trazodone (Trazodone HCl) 50 Mg Tab 50 Mg PO HS PRN 11/19/15 Reported Prednisone 20 Mg Tab 20 Mg PO DIRECTED PRN 11/19/15 Reported Lioresal (Baclofen) 10 Mg Tab 10 Mg PO TID PRN 11/19/15 Reported Synthroid (Levothyroxine Sodium) 100 Mcg Tab 100 Mcg PO QAM 11/19/15 Reported Cozaar (Losartan Potassium) 25 Mg Tab 12.5 Mg PO QAM 06/27/15 Reported Lasix (Furosemide) 40 Mg Tab 1 Tab PO BID PRN 30 12/18/14 Reported Review of Systems Constitutional: No fever, No chills, No sweats, No weight loss, No weakness Eyes: No eye pain, No redness ENT: No sore throat, No trouble swallowing, No pain on swallowing Respiratory: No cough, No wheezing, No shortness of breath, No dyspnea on exertion Cardiac: No chest pain, No edema, No palpitations Abdomen: + see HPI Neuro: No memory loss, No weakness, No numbness/tingling, No vertigo, No balance problems Psych: No depression symptoms, No anxiety, No insomnia Heme: No abnormal bleeding/bruising, No night sweats Endo: No excessive thirst, No excessive urination Skin: No rash, No itch, No new/changing skin lesions, No jaundice Physical Exam Date Time Temp Pulse Resp B/P (MAP) Pulse Ox O2 Delivery O2 Flow Rate FiO2 03/03/17 08:00 Room Air 03/03/17 06:58 36.6 81 16 113/61 (78) 94 Room Air 03/03/17 00:00 Room Air 03/02/17 23:18 36.4 95 18 116/65 (82) 93 Room Air 03/02/17 20:29 82 112/68 (83) 03/02/17 20:00 Room Air 03/02/17 16:55 36.6 85 16 97/66 (76) 94 Room Air 03/02/17 15:40 Room Air 03/02/17 15:28 36.5 91 20 95 03/02/17 15:03 36.5 91 20 115/64 (81) 95 Room Air 03/02/17 12:00 Room Air 03/02/17 11:46 36.4 68 20 112/43 (66) 92 Room Air General Appearance: no apparent distress Eyes: normal inspection, EOMI Neck: supple, no adenopathy, thyroid normal, no JVD Respiratory/Chest: chest non-tender, lungs clear, normal breath sounds, no accessory muscle use Cardiovascular: regular rate, rhythm, no JVD, no murmur Abdomen: normal bowel sounds, non tender, soft, + pertinent finding (I'm not able to appreciate organomegaly on palpation of the abdomen) Extremities: normal inspection, no pedal edema, normal capillary refill Neurologic/Psych: alert, normal mood/affect, oriented x 3 Skin: normal color, no jaundice, warm/dry, no rash Laboratory Results Last 24 Hours Test 03/03/17 07:22 White Blood Count 12.08 K/uL Red Blood Count 3.62 M/uL Hemoglobin 10.7 g/dL Hematocrit 34.2 % Mean Corpuscular Volume 94.5 fL Mean Corpuscular Hemoglobin 29.6 pg Mean Corpuscular Hemoglobin Concent 31.3 g/dl Platelet Count 630 K/uL Mean Platelet Volume 11.4 fL Neutrophils (%) (Auto) 74.6 % Lymphocytes (%) (Auto) 15.6 % Monocytes (%) (Auto) 6.5 % Eosinophils (%) (Auto) 1.2 % Basophils (%) (Auto) 0.2 % Neutrophils # (Auto) 9.02 K/uL Lymphocytes # (Auto) 1.88 K/uL Monocytes # (Auto) 0.78 K/uL Eosinophils # (Auto) 0.15 K/uL Basophils # (Auto) 0.02 K/uL RDW Standard Deviation 59.8 fL RDW Coefficient of Variation 17.7 % Immature Granulocyte % (Auto) 1.9 % Immature Granulocyte # (Auto) 0.23 K/uL Erythrocyte Sedimentation Rate 22 mm/hr Sodium Level 135 mmol/L Potassium Level 3.6 mmol/L Chloride Level 95 mmol/L Carbon Dioxide Level 31 mmol/L Anion Gap 8.0 mmol/L Blood Urea Nitrogen 53 mg/dl Creatinine 2.60 mg/dl Est Creatinine Clear Calc Drug Dose 27.0 ml/min Estimated GFR () 27.1 Estimated GFR (Non- 23.4 BUN/Creatinine Ratio 20.3 Random Glucose 96 mg/dl Calcium Level 9.2 mg/dl Total Bilirubin 2.5 mg/dl Aspartate Amino Transf (AST/SGOT) 20 U/L Alanine Aminotransferase (ALT/SGPT) 24 U/L Alkaline Phosphatase 149 U/L C-Reactive Protein 0.69 mg/dl Total Protein 7.5 gm/dl Albumin 3.8 gm/dl Globulin 3.7 gm/dl Albumin/Globulin Ratio 1.0 Impression Patient is a 71 year old male with hyperbilirubinemia in the setting of heart failure. Also present is fatty liver, and a mildly elevated INR. He has not had abdominal pain prior jaundice pruritus and imaging does not suggest any evidence of biliary obstruction. 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 He also c/o diarrhea 2-3 times/day since undergoing colonoscopy prep (the procedure was cancelled due to CHF exacerbation). Plan Regarding mild hyperbilirubinemia, treatment for this issue should be focused on treatment of his CHF. No further GI testing is required at this point. No GI follow-up is required. Regarding Diarrhea:will check for C-diff and will prescribe: loperamide BID prn diarrhea. I performed a history and physical examination of the patient. I have discussed the patient's case, impression and plan with LIZBETH Velasco on 03/03/2017. Her note reflects my findings and plan. Check for C. diff. If negative treat symptomatically. Silviano Daniels MD
--- NOTE | 2017-03-03 10:23 | Medical Consult ---
Consultation Date of Consultation: Mar 03, 2017. Attending Physician: Hal Saravia MD History of Present Illness Hematology/Oncology consult: Jaundice, rule out hemolysis. Date of consultation: 03/03/[address] Sahu. HPI: 71-year-old male, who is admitted at [facility] on 2016. He was scheduled for colonoscopy examination on that day but then he had increasing shortness of breath, lower extremity swelling, also noticed to have jaundice, he was sent to [facility] ER. He does complain of chronic bilateral lower extremity edema which has worsened over the last few days before the admission. Increasing shortness of breath noted, he did not have any increasing chest pain, no increasing anal chest pain, no headache, he denies any history of jaundice in the past but I reviewed his medical records, he had indirect bilirubinemia in the past, he was seen by translator and interpreter, suspected to have possible Gilbert 's syndrome or congestive hepatomegaly causing indirect hyperbilirubinemia.. Diarrhea present, he denies any blood in the stool. Denies any abdominal discomfort. REVIEW OF SYSTEMS: GENERAL: Says that he lost about 20 lb, feeling weak and tired, no fever or chills. SKIN: No skin rash, some small bruising noted in the upper extremities.. HEAD: No new headache, no dizziness. EYES: No recent change in the vision, no diplopia, EARS: No earache no tinnitus, NOSE: No epistaxis, No nasal discharge or stuffiness, MOUTH: No sores, no dysphagia, no hoarseness of voice, NECK: No lumps, No swelling in thyroid area. No stiffness. PULMONARY: No cough, shortness of breath on exertion present, no hemoptysis, no chest pain, No wheezing. CARDIOVASCULAR: No anginal chest pain, no PND, no orthopnea. No palpitation, bilateral leg edema. No syncope. GASTROINTESTINAL: No abdominal pain, no nausea or vomiting. Diarrhea present, No constipation. No blood in stool or black tarry stools. No abdominal distention. UROLOGIC: No burning urination. No hematuria. MUSCULOSKELETAL: Bilateral shoulder pain present. HEMATOLOGIC: No anemia, no bleeding disorder, No bruising. He says that he did received total 3 units of blood in the past. NEUROLOGIC: No seizures, no focal weakness, no speech difficulty, No memory disturbances. No tingling or numbness of the extremities. PSYCHIATRIC: No depression. No anxiety. No psychosis. SLEEP: No sleep disorder. Past medical and surgical history: - Congestive heart failure, ejection fraction is around 30% - Hypertension, nonocclusive coronary disease - Chronic kidney disease. - Splenomegaly noted in the previous imaging study. 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 - Hypothyroidism. He is on Synthroid replacement therapy. - Colonic polyps. Social history: History of smoking present, history of heavy alcohol use in the past, discontinued drinking habit somewhere in 2005. He lives alone. Family history: Not significant. Medications: Please review his chart for detailed list of medications. On exam: - Alert and oriented x3, well built man, not in any distress. - HEENT: no icterus, no pallor, Throat: Normal. - Neck: No palpable cervical lymphadenopathy. - Chest: clear to auscultation. - Abdomen: soft, nontender, no hepatomegaly, spleen palpable about 4 to 5 cm below the left costal margin.. - No focal neuro deficit. - Extremities: no finger clubbing, bilateral leg edema present. Lab: Blood workup done during this hospitalization: -WBC 8700, H&H of 9.8/31, MCV 94.9, Platelet count of 476,000. Some nucleated RBCs noted. -Absolute reticulocyte count--> 0.11 which is close to the upper limit of normal. -Haptoglobin--> 185 which is in normal range. -ESR--> 22 - Immature WBCs noted with the presence of myelocytes and metamyelocytes. Tear drop cells noted. - Platelet count had increased to around 644,000 as of 03/02/2017. -Serum creatinine level--> 1.7 (02/25/2017)--> 2.6 (03/03/2017). -Uric acid 8.0 -Total bilirubin level had increased to around 4.8 on 02/26/2007, dropped down to around 2.5 as of 03/03/2017. -direct bilirubin level--> 0.4 -Normal AST, ALT. -Alkaline phosphatase slightly elevated around 170. -LDH--> 554 -Pro-BNP--> > 35,000 -Peripheral smear you reviewed by pathologist on 02/26/2017 showed normocytic anemia, thrombocytosis noted, teardrop cells noted, no schistocytes or spherocytes noted, Blood workup done earlier at [facility] in early 2015: - Platelet count has remained on the higher side around 400,000-500,000. - Platelet count also became normal for few days in July,. - Peripheral smear reviewed by pathologist in early 2015, his hemoglobin level was around 7 at that time, showed presence of teardrop cell, very rare immature myeloid cells present which has raised the possibility of primary bone marrow disorder, - He had bilirubin level increased to around 2.3 earlier in July,. Blood workup done at [facility]: - Thrombocytosis noted earlier in July,, platelet count was around 950,000 , hemoglobin level was 13.5, WBC was 9100 at that time. Large platelets reported. - Platelet count has remained on the higher side earlier in 2013 and afterwards but it was in the normal range on few occasions. - Immature WBCs in the form of myelocytes and metamyelocytes well reported in the blood workup done in March,. - Bilirubin level had increased to around 4.3 earlier in March,, bilirubin level was 0.9 in 2005. - Serum creatinine level was in the range of 2-2.2 earlier in 2014. Imaging: Imaging studies done during this hospitalization: - Bilateral lower extremity Doppler evaluation done on 02/25/2017--> no evidence of DVT. - Ultrasound of the right upper abdomen done on 02/25/2017 for evaluation of jaundice showed mildly enlarged heterogenous liver, no ductal dilatation noted, no gallstones present. - Chest x-ray done on 02/26/2017 showed cardiomegaly with pulmonary vascular congestion. No pulmonary edema noted. -Ultrasound of the abdomen done on 11/06/2014 should splenomegaly measuring up to 19 cm. -Ultrasound of the abdomen done on 07/30/2015 at [facility] showed splenomegaly measuring up 16.2 cm. ASSESSMENT AND PLAN: 71-year-old the male, who is admitted in the hospital for acute on chronic congestive heart failure, blood workup shows indirect hyperbilirubinemia which is not a new finding, he had similar findings earlier in 2013, total bilirubin level was around 4.3 at that time, his bilirubin level fluctuates from normal range to around 4-4.5 mainly he has indirect hyperbilirubinemia, earlier he was seen by GI, suspected to have Gilbert syndrome or congestive hepatomegaly may be the cause of indirect hyperbilirubinemia. He also has abnormality in the blood counts, had thrombocytosis with a platelet count around 950,000 with a hemoglobin of 13.5 earlier in 2005, since then his platelet count has remained on the higher side on most of the time, had significant anemia in early 2015 with hemoglobin level dropped down 7.3 g/dL, received blood transfusion at that time. I reviewed his recent the blood workup, has mild anemia, some nucleated red blood cell, tear drop cells, immature WBCs noted since early 2015, splenomegaly was also noted in the ultrasound of the abdomen done in October,, on physical examination he has palpable spleen which has raised the possibility of underlying bone marrow disorder. Looking at peripheral smear examination and blood workup findings, essential thrombocythemia would be possibility, may be progressing to myelofibrosis. He will require further workup including bone marrow examination, I am planning for bone exertion as an outpatient basis. I do not think he has significant hemolysis going on at this time, high LDH could be related to the bone marrow disorder with some breakdown of RBCs occurring in the bone marrow, has mild reticulocytosis, normal haptoglobin level. Thanks for the consultation. Dr. Toby Corado Hem/Onc (This note was completed using the dictation program Fluency Direct. As such, there may be misspellings, word substitutions, or other variations that should not change the essence of the clinical content of this encounter note. If there is need for further clarification, please direct questions to the provider listed above.) Past Medical/Surgical History Medical Problems: (1) Ambulatory dysfunction Status: Acute (2) Fluid overload Status: Acute (3) Generalized weakness Status: Acute (4) Jaundice Status: Acute (5) Kidney disease Status: Acute (6) Polyarticular arthritis Status: Acute (7) Shortness of breath Status: Acute (8) Symptomatic anemia Status: Acute Family History Asthma FH: cancer FH: heart disease Social History Smoking Status: Current Every Day Smoker Alcohol Use: History of heavy used. Last drink in 2005. Drug Use: none Marital Status: Housing Status: lives alone Occupation Status: retired Allergies Coded Allergies: No Known Allergies (Unverified , 02/25/17) Current Inpatient Medications Current Inpatient Medications Medications (Trade) Dose Ordered Sig/Lisa Route Start Time Stop Time Status Last Admin Dose Admin Heparin Sodium (Porcine) (Heparin Sq 5000 Unit/0.5ml) 5,000 unit Q12 SQ 02/25/17 21:00 03/27/17 20:59 Zolpidem Tartrate (Ambien Tab) 5 mg HSZ PRN PO 02/25/17 16:15 03/27/17 16:14 03/01/17 01:19 5 MG Allopurinol (Zyloprim Tab) 300 mg QAM PO 02/26/17 09:00 03/28/17 08:59 03/03/17 08:18 300 MG Aspirin (Ecotrin Tab) 81 mg DAILY PO 02/26/17 09:00 03/28/17 08:59 03/03/17 08:18 81 MG Baclofen (Lioresal Tab) 10 mg TID PRN PO 02/25/17 16:30 03/27/17 16:29 03/02/17 05:42 10 MG Cholecalciferol (Vitamin D Tab) 1,000 inter.unit QAM PO 02/26/17 09:00 03/28/17 08:59 03/03/17 08:18 1,000 INTER.UNIT Levothyroxine Sodium (Synthroid Tab) 100 mcg DAILYBB PO 02/26/17 06:30 03/28/17 06:59 03/03/17 05:52 100 MCG Losartan Potassium (coZAAR TAB) 12.5 mg QAM PO 02/26/17 09:00 03/28/17 08:59 Future Hold 02/26/17 08:56 12.5 MG Prednisone (PredniSONE TAB) 20 mg DAILY PRN PO 02/25/17 16:30 03/27/17 16:29 03/01/17 08:37 20 MG Trazodone HCl (Desyrel Tab) 50 mg HS PRN PO 02/25/17 16:30 03/27/17 16:29 Calcium Carbonate (Tums Chew Tab) 500 mg QID PRN PO 02/25/17 22:00 03/27/17 21:59 03/01/17 20:06 500 MG Al Hydrox/Mg Hydrox/Simethicone (Maalox Max Susp) 15 ml Q6H PRN PO 02/26/17 11:00 03/28/17 10:59 03/01/17 14:21 15 ML Spironolactone (Aldactone Tab) 25 mg QAM PO 02/27/17 09:00 03/29/17 08:59 03/03/17 08:18 25 MG Carvedilol (Coreg Tab) 6.25 mg BID PO 02/27/17 21:00 03/27/17 20:59 03/03/17 08:18 6.25 MG Alprazolam (Xanax Tab) 0.25 mg Q6H PRN PO 03/01/17 13:30 03/31/17 13:29 03/02/17 02:59 0.25 MG Furosemide 80 mg/ Syringe 8 ml @ 4 mls/min BID17 IV 03/02/17 17:00 04/01/17 16:59 03/03/17 08:19 4 MLS/MIN Physical Exam Date Time Temp Pulse Resp B/P (MAP) Pulse Ox O2 Delivery O2 Flow Rate FiO2 03/03/17 08:00 Room Air 03/03/17 06:58 36.6 81 16 113/61 (78) 94 Room Air 03/03/17 00:00 Room Air 03/02/17 23:18 36.4 95 18 116/65 (82) 93 Room Air 03/02/17 20:29 82 112/68 (83) 03/02/17 20:00 Room Air 03/02/17 16:55 36.6 85 16 97/66 (76) 94 Room Air 03/02/17 15:40 Room Air 03/02/17 15:28 36.5 91 20 95 03/02/17 15:03 36.5 91 20 115/64 (81) 95 Room Air 03/02/17 12:00 Room Air 03/02/17 11:46 36.4 68 20 112/43 (66) 92 Room Air Laboratory Results Last 24 Hours Test 03/03/17 07:22 White Blood Count 12.08 K/uL Red Blood Count 3.62 M/uL Hemoglobin 10.7 g/dL Hematocrit 34.2 % Mean Corpuscular Volume 94.5 fL Mean Corpuscular Hemoglobin 29.6 pg Mean Corpuscular Hemoglobin Concent 31.3 g/dl Platelet Count 630 K/uL Mean Platelet Volume 11.4 fL Neutrophils (%) (Auto) 74.6 % Lymphocytes (%) (Auto) 15.6 % Monocytes (%) (Auto) 6.5 % Eosinophils (%) (Auto) 1.2 % Basophils (%) (Auto) 0.2 % Neutrophils # (Auto) 9.02 K/uL Lymphocytes # (Auto) 1.88 K/uL Monocytes # (Auto) 0.78 K/uL Eosinophils # (Auto) 0.15 K/uL Basophils # (Auto) 0.02 K/uL RDW Standard Deviation 59.8 fL RDW Coefficient of Variation 17.7 % Immature Granulocyte % (Auto) 1.9 % Immature Granulocyte # (Auto) 0.23 K/uL Erythrocyte Sedimentation Rate 22 mm/hr Sodium Level 135 mmol/L Potassium Level 3.6 mmol/L Chloride Level 95 mmol/L Carbon Dioxide Level 31 mmol/L Anion Gap 8.0 mmol/L Blood Urea Nitrogen 53 mg/dl Creatinine 2.60 mg/dl Est Creatinine Clear Calc Drug Dose 27.0 ml/min Estimated GFR () 27.1 Estimated GFR (Non- 23.4 BUN/Creatinine Ratio 20.3 Random Glucose 96 mg/dl Calcium Level 9.2 mg/dl Total Bilirubin 2.5 mg/dl Aspartate Amino Transf (AST/SGOT) 20 U/L Alanine Aminotransferase (ALT/SGPT) 24 U/L Alkaline Phosphatase 149 U/L C-Reactive Protein 0.69 mg/dl Total Protein 7.5 gm/dl Albumin 3.8 gm/dl Globulin 3.7 gm/dl Albumin/Globulin Ratio 1.0
[2017-03-03] MEDS ORDERED: POTASSIUM CHLORIDE 20 MEQ TABCR PO STA (11:19)
[2017-03-03] MEDS ORDERED: LOPERAMIDE HCL 2 MG CAP PO PRN (12:15)
--- NOTE | 2017-03-03 13:23 | Progress Note ---
Internal Med Progress Note Date of Service: Mar 03, 2017. Provider Documentation: SUBJECTIVE: patient reporting diarrhea overnight. denies shortness of breath, chest pain, abdominal pain, or dysuria OBJECTIVE: General Appearance: no apparent distress Head: normocephalic, atraumatic Face: jaundice Eyes: EOMI ENT: hearing grossly normal Neck: supple, no adenopathy, no JVD, trachea midline Respiratory/Chest: on room air, no audible wheezes Cardiovascular: regular rate, rhythm, no murmur Abdomen/GI: normal bowel sounds, non tender, soft Back: normal inspection, no CVA tenderness Extremities: no calf tenderness, reduced edema of lower extremities bilaterally , has hard skin on lower extremities likely from chronic skin changes due to recurrent lower extremity edema Neurologic: no motor/sensory deficits, alert, normal mood/affect, oriented x 3 ASSESSMENT & PLAN: 71 year old M sent from colonoscopy outpatient because of fluid overload secondary to poor cardiac ejection fraction Acute on chronic CHF with new mitral regurgitation TTE: left ventricle is moderately dilated. Ejection Fraction = 25-30%. severe global hypokinesis of the left ventricle. Cardiology had increase Lasix to 80 mg IV BID and added spirolactone, cardiology recommending to continue diuresis at same rate with the thoughts that the creatinine rise is due to poor renal perfusion from cardiorenal syndrome nephrology quality compliance consultant has been adjusting IV Lasix and metolazone and ordered fluid limit 1.2 L review of net input on output as recorded by our nursing staff shows net loss of 4 liters of fluid and net weight decrease from 99.4 kg to 88.9 kg from to 03/03/17 despite his cardiac history, patient appears to have been well-diuresed based on these numbers will switch to BID Lasix today on 03/03/17 with intent to deescalate Lasix regimen if patient clinically stable History of gout: patient reports gout flare exacerbated by metolazone in the past, uric acid level 8, hold metolazone for now unless fluid overload is exacerbated on decreased Lasix potency as a per oral medication instead of IV medication Hypokalemia resolved after repletion on standing potassium repletion and monitor potassium as patient on high doses of Lasix Wide complex tachycardia (aberrancy vs. ventricular tachycardia) -on increased carvedilol on the hospital admission 6.25 mg BID and will need to dose to be continued as outpatient -as per cardiology, patient qualifies for BIV ICD, likely to be performed as outpatient Elevated indirect bilirubin, elevated alk phosphatase, jaundice -Normocytic anemia stable -haptoglobin 185, LDH 556 elevated suggestive of some hemolysis -both alkaline phosphatase 120 to 171 and GGT 92 (reference range 3 to 70) are mildly elevated suggestive possibility of disease of the bile ducts and in some liver diseases -however Ultrasound abdomen fairly benign: The liver is mildly enlarged and heterogeneous in echotexture. There is no intra or extrahepatic biliary ductal dilatation. No gallstones are identified. -peripheral smear: "overall findings are consistent with normocytic anemia with thrombocytosis" -G6PD 14.1 not deficient (reference range 4.6 to 13.5) -may need further evaluation as oupatient with primary care doctor from hemoncology and GI perspective as these findings appear inconclusive -hemonocology consult 03/03/17: -GI consult on 03/03/17: unlikely to be biliary source; Regarding Diarrhea: check for C-diff and loperamide BID prn diarrhea -will hold loperamide for now if concerned fo C.diff in my opinion -Hemoncology consult 03/03/17: may benefit from outpatient bone marrow biopsy Leukocytosis: unclear as to why WBC rising, patient afebrile, ESR 22 and CRP 0.69 do not suggest strongly for an inflammatory process such as infection patient recently with diarrhea but with no recent antibiotics use, send C.diff as per GI consult history of MSSA in urine on admission labs but no complaints of dysuria, repeat UA ID consult requested HTN: Normotensive, Continue home regimen CKD III: Monitor closely while on diuretics Hypothyroidism on Levothyroxine TSH 5.12, T4 8.6 Continue home dose of levothyroxine DVT Ppx: Heparin SQ Code status: FULL Dispo: Patient appears to be diuresed for chronic heart failure when on IV diuretics, switching to oral regimen and de-escalating as needed, concern for infectious process and awaiting blood culture and C.diff results in context of diarrhea and leukocytosis however ESR and CRP do no strongly support an inflammatory process, awaiting ID consult on whether admission MSSA in urine requires antibiotics and also repeating UA Once these concerns are addressed, patient can be discharged to home with oral diuretic regimen for CHF with follow up to PCP: Dr. Blunt, in addition for cardiology follow up for BIV ICD placement, hemoncology clinic follow up for possible bone marrow biopsy, gastroenterology clinic for outpatient colonoscopy Vital Signs: Date Time Temp Pulse Resp B/P (MAP) Pulse Ox O2 Delivery O2 Flow Rate FiO2 03/03/17 08:00 Room Air 03/03/17 06:58 36.6 81 16 113/61 (78) 94 Room Air 03/03/17 00:00 Room Air 03/02/17 23:18 36.4 95 18 116/65 (82) 93 Room Air 03/02/17 20:29 82 112/68 (83) 03/02/17 20:00 Room Air 03/02/17 16:55 36.6 85 16 97/66 (76) 94 Room Air 03/02/17 15:40 Room Air 03/02/17 15:28 36.5 91 20 95 03/02/17 15:03 36.5 91 20 115/64 (81) 95 Room Air Lab Results: Results Past 24 Hours Test 03/03/17 07:22 Range/Units White Blood Count 12.08 4.8-10.8 K/uL Red Blood Count 3.62 4.7-6.1 M/uL Hemoglobin 10.7 14.0-18.0 g/dL Hematocrit 34.2 42-52 % Mean Corpuscular Volume 94.5 80-100 fL Mean Corpuscular Hemoglobin 29.6 25-34 pg Mean Corpuscular Hemoglobin Concent 31.3 32-36 g/dl Platelet Count 630 130-400 K/uL Mean Platelet Volume 11.4 7.4-10.4 fL Neutrophils (%) (Auto) 74.6 % Lymphocytes (%) (Auto) 15.6 % Monocytes (%) (Auto) 6.5 % Eosinophils (%) (Auto) 1.2 % Basophils (%) (Auto) 0.2 % Neutrophils # (Auto) 9.02 1.4-6.5 K/uL Lymphocytes # (Auto) 1.88 1.2-3.4 K/uL Monocytes # (Auto) 0.78 0.11-0.59 K/uL Eosinophils # (Auto) 0.15 0-0.5 K/uL Basophils # (Auto) 0.02 0-0.2 K/uL RDW Standard Deviation 59.8 36.4-46.3 fL RDW Coefficient of Variation 17.7 11.5-14.5 % Immature Granulocyte % (Auto) 1.9 % Immature Granulocyte # (Auto) 0.23 0.00-0.02 K/uL Erythrocyte Sedimentation Rate 22 0-14 mm/hr Sodium Level 135 136-145 mmol/L Potassium Level 3.6 3.5-5.1 mmol/L Chloride Level 95 98-107 mmol/L Carbon Dioxide Level 31 21-32 mmol/L Anion Gap 8.0 3-11 mmol/L Blood Urea Nitrogen 53 7-18 mg/dl Creatinine 2.60 0.60-1.40 mg/dl Est Creatinine Clear Calc Drug Dose 27.0 ml/min Estimated GFR () 27.1 Estimated GFR (Non- 23.4 BUN/Creatinine Ratio 20.3 10-20 Random Glucose 96 70-99 mg/dl Calcium Level 9.2 8.5-10.1 mg/dl Total Bilirubin 2.5 0.2-1 mg/dl Aspartate Amino Transf (AST/SGOT) 20 15-37 U/L Alanine Aminotransferase (ALT/SGPT) 24 12-78 U/L Alkaline Phosphatase 149 45-117 U/L C-Reactive Protein 0.69 0-0.29 mg/dl Total Protein 7.5 6.4-8.2 gm/dl Albumin 3.8 3.4-5.0 gm/dl Globulin 3.7 2.5-4.0 gm/dl Albumin/Globulin Ratio 1.0 0.9-2 Microbiology Results 03/03/17 Blood Culture, Ordered Pending 03/03/17 Blood Culture, Ordered Pending
[2017-03-03 15:12] VITALS: BP 121/68; PULSE 59; TEMP 36.4; O2SAT 93
--- NOTE | 2017-03-03 15:12 | Progress Note ---
Progress Note Date of Service Mar 03, 2017. Progress Note ID Consult Dictated # [id number] A/P: 1. leukocytosis 2. Positive urine culture -suspect increased wbc reactive, platelets also increased and pt is on steroids -Suspect + urine is colonization, UA negative, pt asymptomatic -clinically stable, afebrile off of abx, would continue to hold abx -thank you
[2017-03-03] MEDS: BACLOFEN 10 MG TAB PO PRN (15:29)
[2017-03-03 15:34] LABS: URINE APPEARANCE CLEAR (CLEAR); URINE BILIRUBIN NEG (NEG); URINE COLOR YELLOW; URINE NITRITE NEG (NEG); URINE SPECIFIC GRAVITY 1.011 (1.000-1.030); UROBILINOGEN NEG (NEG)
[2017-03-03 15:35] LABS: MANUAL MICROSCOPIC REQUIRED? NO; REVIEW REQ? NO
[2017-03-03 16:00] VITALS: O2SAT 93
--- NOTE | 2017-03-03 16:19 | INFECT. DISEASE CONSULTATION ---
DATE OF CONSULTATION: 03/03/2017 DATE OF CONSULTATION: 03/03/2017 REQUESTING PHYSICIAN: Dr. Sahu. HISTORY OF PRESENT ILLNESS: This is a 71-year-old gentleman who was admitted after a colonoscopy for fluid overload. He has been treated with Lasix. His creatinine has increased somewhat. He initially had a white blood cell count of 9.8, this is increased to 12. He is also on prednisone. His urinalysis in the ER on the had greater than 30 WBCs with no bacteria. Urine culture from the is growing MSSA. This was finalized on the . He has not been on any antibiotics. He has had some diarrhea, but he states he was taking Dulcolax from home up until this morning. He has discontinued his Dulcolax and he states that his diarrhea is resolving. Blood cultures and C. diff culture were ordered today. He denies any fevers or chills. He denies any chest pain, cough, shortness of breath, nausea, vomiting or abdominal pain. His diarrhea is improving. He has no urinary symptoms. All remaining review of systems are reviewed and are unremarkable. PAST MEDICAL HISTORY: Significant for chronic kidney disease, hypokalemia, hypothyroidism, cardiomyopathy, coronary artery disease, splenomegaly, CHF. PAST SURGICAL HISTORY: Significant for cardiac catheterization and recent colonoscopy. FAMILY HISTORY: Noncontributory. SOCIAL HISTORY: Significant for daily tobacco use. He does have a history of heavy alcohol abuse, but has stopped drinking since 2005. He denies any drug use. ALLERGIES: He has no known drug allergies. CURRENT MEDICATIONS: Include Lasix, Xanax, Coreg, spironolactone, Maalox, allopurinol, Ecotrin, vitamin D, Synthroid, subQ heparin, prednisone, trazodone, Ambien and baclofen. PHYSICAL EXAMINATION: VITAL SIGNS: She is afebrile, pulse 81, respiratory rate 16, blood pressure 113/61, oxygen saturation is 94% on room air. GENERAL: He is awake, alert and oriented x3. He is in no acute distress. HEAD, EYES, EARS, NOSE, AND THROAT: Mucous membranes are moist. Extraocular muscles are intact. HEART: Regular. LUNGS: Clear. ABDOMEN: Soft, nontender, nondistended. EXTREMITIES: There is no lower extremity edema bilaterally. SKIN: Without rash. LABORATORY STUDIES: CBC today reveals a white blood cell count 12, hemoglobin 10.7, platelets are 630. Sed rate is 22. Chemistry panel reveals a sodium of 135, potassium 3.6, chloride 95, bicarb 31, BUN 53, creatinine 2.6, glucose is 96. Urinalysis had greater than 30 WBCs, but also had greater than 30 epithelial cells and no bacteria. MSSA grew from the urine culture and was finalized on the . Blood cultures from today are pending. C. diff specimen is pending. A chest x-ray on the is unremarkable. ASSESSMENT AND PLAN: Leukocytosis, likely reactive secondary to steroids. He also has thrombocytosis which this could be chronic in nature. I do not see any infectious etiology. I suspect the MSSA from his urine was contaminated as he had greater than 30 epithelial cells and also had no bacteria on urinalysis. Additionally, he is afebrile and hemodynamically stable and asymptomatic. I would follow this individual off of antibiotics. Thank you for this consultation.
[2017-03-03] MEDS ORDERED: CRG625 PO (16:41)
[2017-03-03] MEDS ORDERED: SPR25 PO (16:41)
--- NOTE | 2017-03-03 16:42 | Discharge Instructions ---
Discharge Instructions Date of Service Mar 03, 2017. Admission Reason for Admission: Fluid Overload, Hyperbilirubinemia Discharge Discharge Diagnosis / Problem: Acute on chronic CHF with new mitral regurgitation, chronic kidney disease Discharge Goals Goal(s): Improve disease control Activity Recommendations Activity Limitations: per Instructions/Follow-up section Lifting Limitations: until after follow-up appointment Exercise/Sports Limitations: until after follow-up appointment Shower/Bathe: no limitations . Instructions / Follow-Up Instructions / Follow-Up Disposition Given patient clinically stable, patient to be discharged home with follow up to 03/10/2017 11:20 AM Michi Campbell MD Internal Medicine [facility] Patient has been afebrile in the hospital and not treated with antibiotics. Had methicillin sensitive staph in the urine and asymptomatic. Patient can follow up labs for blood culture drawn on 03/03/17 at his primary care doctor's office. Patient should return to the hospital if he has fevers. Patient to be discharged with home dose with recommendations to double his Lasix dose if feet swelling increases or increased shortness of breath New cardiac medication of carvedilol 6.25 mg BID and spironolactone 25 mg daily to treat congestive heart failure Follow up with cardiology appointment with Dr. Novak in [facility] on at 11:05 AM as patient may plan then for outpatient BIV ICD placement. Patient may need follow up with hemoncology clinic with Dr. Toby Corado for possible bone biopsy. This can also be coordinated by his primary care doctor. Current Hospital Diet Patient's current hospital diet: Low Sodium Diet (2gm Na) Discharge Diet Recommended Diet: Low Sodium Diet (2gm Na) Pending Studies Studies pending at discharge: no Laboratory Results 03/03/17 07:22 Red Blood Count 3.62, Mean Corpuscular Volume 94.5, Mean Corpuscular Hemoglobin 29.6, Mean Corpuscular Hemoglobin Concent 31.3, Mean Platelet Volume 11.4, Neutrophils (%) (Auto) 74.6, Lymphocytes (%) (Auto) 15.6, Monocytes (%) (Auto) 6.5, Eosinophils (%) (Auto) 1.2, Basophils (%) (Auto) 0.2, Neutrophils # (Auto) 9.02, Lymphocytes # (Auto) 1.88, Monocytes # (Auto) 0.78, Eosinophils # (Auto) 0.15, Basophils # (Auto) 0.02 03/03/17 07:22 Test 02/25/17 12:30 02/25/17 12:48 02/25/17 18:02 02/26/17 07:34 Absolute Reticulocyte Count 0.11 10^6/uL (0.02-0.10) Percent Reticulocyte Count 3.1 % (0.5-2.0) Activated Partial Thromboplast Time 33.2 SECONDS (21.0-31.0) Partial Thromboplastin Ratio 1.3 Direct Bilirubin 0.4 mg/dl (0-0.2) Troponin I 0.024 ng/ml (0-0.045) Lipase 114 U/L (73-393) Thyroid Stimulating Hormone (TSH) 5.120 uIu/ml (0.300-4.500) Free Thyroxine 1.29 ng/dl (0.80-1.60) Urine Yeast (Auto) (NONE PRSENT) Haptoglobin 185 MG/DL (43-212) Gamma Glutamyl Transpeptidase 92 U/L (3-70) Lactate Dehydrogenase 554 U/L (87-241) Thyroxine (T4) 8.6 mcg/dl (4.5-10.9) Peripheral Blood Smear Path Consult [id number] Dehydrogenase 14.1 U/g Hb (4.6-13.5) Prothrombin Time 13.8 SECONDS (9.0-12.0) Prothromb Time International Ratio 1.3 (0.9-1.1) Test 02/28/17 07:28 03/01/17 07:13 03/02/17 06:09 03/03/17 00:00 Magnesium Level 2.6 mg/dl (1.8-2.4) Nucleated RBC Absolute Count (auto) 0.07 K/uL (0-0) Neutrophils % (Manual) 76.4 % Lymphocytes % (Manual) 7.0 % Monocytes % (Manual) 9.6 % Eosinophils % (Manual) 0.9 % Basophils % (Manual) 0.9 % (0-2) Metamyelocytes % 1.7 % Myelocytes % 3.5 % Nucleated Red Blood Cells % 0.7 % Neutrophils # (Manual) 8.34 K/uL (1.4-6.5) Total Absolute Neutrophils 8.34 K/uL (1.4-6.5) Lymphocytes # (Manual) 0.76 K/uL (1.2-3.4) Total Absolute Lymphocytes 0.76 K/uL (1.2-3.4) Monocytes # (Manual) 1.05 K/uL (0.11-0.59) Eosinophils # (Manual) 0.10 K/uL (0-0.5) Basophils # (Manual) 0.10 K/uL (0-0.2) Metamyelocytes # 0.19 K/uL (0-0) Myelocytes # 0.38 K/uL (0-0) Polychromasia 1+ Tear Drop Cells 2+ Uric Acid 8.0 mg/dl (2.6-7.2) Pro-B-Type Natriuretic Peptide > 90863 pg/ml (0-900) Urine Color YELLOW Urine Appearance CLEAR (CLEAR) Urine pH 8.0 (4.5-7.5) Urine Specific [place] 1.011 (1.000-1.030) Urine Protein NEG (NEG) Urine Glucose (UA) NEG (NEG) Urine Ketones NEG (NEG) Urine Occult Blood NEG (NEG) Urine Nitrite NEG (NEG) Urine Bilirubin NEG (NEG) Urine Urobilinogen NEG (NEG) Urine Leukocyte Esterase SMALL (NEG) Urine WBC (Auto) 1-5 /hpf (0-5) Urine RBC (Auto) 0-4 /hpf (0-4) Urine Hyaline Casts (Auto) 1-5 /lpf (0-5) Urine Epithelial Cells (Auto) 5-10 /lpf (0-5) Urine Bacteria (Auto) NEG (NEG) Test 03/03/17 07:22 White Blood Count 12.08 K/uL (4.8-10.8) Red Blood Count 3.62 M/uL (4.7-6.1) Hemoglobin 10.7 g/dL (14.0-18.0) Hematocrit 34.2 % (42-52) Mean Corpuscular Volume 94.5 fL (80-100) Mean Corpuscular Hemoglobin 29.6 pg (25-34) Mean Corpuscular Hemoglobin Concent 31.3 g/dl (32-36) Platelet Count 630 K/uL (130-400) Mean Platelet Volume 11.4 fL (7.4-10.4) Neutrophils (%) (Auto) 74.6 % Lymphocytes (%) (Auto) 15.6 % Monocytes (%) (Auto) 6.5 % Eosinophils (%) (Auto) 1.2 % Basophils (%) (Auto) 0.2 % Neutrophils # (Auto) 9.02 K/uL (1.4-6.5) Lymphocytes # (Auto) 1.88 K/uL (1.2-3.4) Monocytes # (Auto) 0.78 K/uL (0.11-0.59) Eosinophils # (Auto) 0.15 K/uL (0-0.5) Basophils # (Auto) 0.02 K/uL (0-0.2) RDW Standard Deviation 59.8 fL (36.4-46.3) RDW Coefficient of Variation 17.7 % (11.5-14.5) Immature Granulocyte % (Auto) 1.9 % Immature Granulocyte # (Auto) 0.23 K/uL (0.00-0.02) Erythrocyte Sedimentation Rate 22 mm/hr (0-14) Anion Gap 8.0 mmol/L (3-11) Est Creatinine Clear Calc Drug Dose 27.0 ml/min Estimated GFR () 27.1 Estimated GFR (Non- 23.4 BUN/Creatinine Ratio 20.3 (10-20) Calcium Level 9.2 mg/dl (8.5-10.1) Total Bilirubin 2.5 mg/dl (0.2-1) Aspartate Amino Transf (AST/SGOT) 20 U/L (15-37) Alanine Aminotransferase (ALT/SGPT) 24 U/L (12-78) Alkaline Phosphatase 149 U/L (45-117) C-Reactive Protein 0.69 mg/dl (0-0.29) Total Protein 7.5 gm/dl (6.4-8.2) Albumin 3.8 gm/dl (3.4-5.0) Globulin 3.7 gm/dl (2.5-4.0) Albumin/Globulin Ratio 1.0 (0.9-2) Date/Time Source Procedure Growth Status 03/03/17 13:55 Blood Blood Culture Pending Received 03/03/17 00:00 Stool C.difficile Toxin B Gene (PCR) - Final No C. difficile toxin B gene detected Complete 02/25/17 12:48 Urine , Clean Catch Urine Culture - Final Staphylococcus Aureus Complete Medical Emergencies . Who to Call and When: Medical Emergencies: If at any time you feel your situation is an emergency, please call 911 immediately. . Non-Emergent Contact Non-Emergency issues call your: Primary Care Provider . . "Provider Documentation" section prepared by Star Sahu. . VTE Core Measure Inpt VTE Proph given/why not?: Unfractionated heparin SQ
[2017-03-03 16:54] VITALS: BP 121/68; PULSE 60; TEMP 36.4; O2SAT 93
[2017-03-03] MEDS ORDERED: FUROSEMIDE 40 MG TAB PO SCH (17:00)
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
[2017-03-03] MEDS ORDERED: INFLUENZA VACCINE HIGH DOSE 65+ 0.5 ML SYR IM. ONE (17:30)
== END 2017-03-03 18:54 | disposition home or self-care (01) | DRG 291 ==
LOC: EDBD 11:43 → EDSEX 11:43 → C.EDC 11:46 → C.MED 14:50 → ENRESERV 15:12 → C.MS4W 03-02 16:40
PROVIDERS: ADMIT Internal Medicine; ATTEND Internal Medicine
DX: I13.0 Hypertensive heart and chronic kidney disease with heart failure and stage 1 through stage 4 chronic kidney disease, or unspecified chronic kidney disease (principal); I50.23 Acute on chronic systolic (congestive) heart failure; R17 Unspecified jaundice; N18.4 Chronic kidney disease, stage 4 (severe); N17.9 Acute kidney failure, unspecified; I42.9 Cardiomyopathy, unspecified; Z82.5 Family history of asthma and other chronic lower respiratory diseases; Z82.49 Family history of ischemic heart disease and other diseases of the circulatory system; F17.210 Nicotine dependence, cigarettes, uncomplicated; I10 Essential (primary) hypertension; I25.10 Atherosclerotic heart disease of native coronary artery without angina pectoris; K76.0 Fatty (change of) liver, not elsewhere classified; R16.1 Splenomegaly, not elsewhere classified; E03.9 Hypothyroidism, unspecified; F60.3 Borderline personality disorder; Z79.82 Long term (current) use of aspirin; I27.20 Pulmonary hypertension, unspecified; I34.0 Nonrheumatic mitral (valve) insufficiency; D64.9 Anemia, unspecified; R00.0 Tachycardia, unspecified; F10.21 Alcohol dependence, in remission; I44.7 Left bundle-branch block, unspecified; M10.9 Gout, unspecified; E87.70 Fluid overload, unspecified; R19.7 Diarrhea, unspecified; D72.829 Elevated white blood cell count, unspecified; T38.0X5A Adverse effect of glucocorticoids and synthetic analogues, initial encounter; D47.3 Essential (hemorrhagic) thrombocythemia

== ENCOUNTER → 2017-02-25 | Day surgery (SDC) | payer OTHER ==
[2017-02-17 10:41] VITALS: Ht 176.5 cm; Wt 97.3 kg
[~2017-02-25] VITALS: Ht 176.5 cm; Wt 97.3 kg
[~2017-02-25] MED LIST: ALLO300T2 PO; ASPI-435 PO; BACL10TA PO; CARV3.122 PO; CHOL100010 PO; FURO40TA3 PO; LEVO100T PO; LIDOCAINE HCL 2% 2 ML VIAL (20MG/ML) ONE; LOSA1TAB PO; PRED20TA PO; PROPOFOL IV EMULSION 10 MG/ML 20 ML VIAL IV ONE; TRAZ50TA35 PO; [UNRECOGNIZED DRUG - OTHER]
[2017-02-25 10:35] VITALS: BP 98/72; PULSE 75; TEMP 36.8; O2SAT 96
--- NOTE | 2017-02-25 10:46 | Endo History and Physical ---
History & Physical Date of Service: Feb 25, 2017. Chief Complaint: 1 Yr f/u recall hx of polyps Referring Physician: Pilgram History of Present Illness h/o large polyps Past Medical History Cancer, Heart Disease, CHF, Thyroid Disease, Kidney Disease, Liver Disease Past Surgical History Hx Cardiac Surgery: No Hx Internal Defibrillator: No Hx Pacemaker: No Hx Abdominal Surgery: No Hx Post-Op Nausea and Vomiting: No Hx Cancer Surgery: No Hx Thoracic Surgery: No Hx Orthopedic: No Hx Urinary Tract Surgery: No Family History Polyp Social History Smoking Status: Current Every Day Smoker Hx Substance Use: No Hx Alcohol Use: No Allergies Coded Allergies: No Known Allergies (Unverified , 02/25/17) Current Medications Reported Home Medications Medications Dose Route/Sig Max Daily Dose Days Date Category Coreg (Carvedilol) 3.125 Mg Tab 3.125 Mg PO BID 02/17/17 Reported Vitamin D (Cholecalciferol) 1,000 Unit Tab 1 Tab PO QAM 02/17/17 Reported Zyloprim (Allopurinol) 300 Mg Tab 300 Mg PO QAM 11/19/15 Reported Trazodone (Trazodone HCl) 50 Mg Tab 50 Mg PO HS PRN 11/19/15 Reported Prednisone 20 Mg Tab 20 Mg PO DIRECTED PRN 11/19/15 Reported Lioresal (Baclofen) 10 Mg Tab 10 Mg PO TID PRN 11/19/15 Reported Synthroid (Levothyroxine Sodium) 100 Mcg Tab 100 Mcg PO QAM 11/19/15 Reported Cozaar (Losartan Potassium) 25 Mg Tab 12.5 Mg PO QAM 06/27/15 Reported Lasix (Furosemide) 40 Mg Tab 1 Tab PO BID PRN 30 12/18/14 Reported Vital Signs Weight (Kilograms): 97.27 Height (Feet): 5 Height (Inches): 9.5 Date Time Temp Pulse Resp B/P (MAP) Pulse Ox O2 Delivery O2 Flow Rate FiO2 02/25/17 10:35 36.8 75 20 98/72 (81) 96 Room Air Physical Exam General Appearance: WD/WN, no apparent distress Assessment and Plan colonoscopy today
--- NOTE | 2017-02-25 11:38 | Progress Note ---
Progress Note Date of Service Feb 25, 2017. Progress Note Patient evaluated by myself in holding. He has a long standing history of chronic systolic heart failure. He reports that he has increasing leg swelling and increasing dyspnea with decreased exercise capacity in the past 3-4 weeks. On exam he has distant lung sounds without crackles. Legs have significant pitting edema and his R inner thigh is red and painful. I did perform CXR which to my read appears to have some interstitial prominence and significant cardiomegaly, but no effusion or consolodation. His sclera do show some mild jaundice. He is moderately low BP in the 90s/70s. In appears that the patient may be developing worsening heart failure, compounded with liver failure as well and is no longer optimized. Given the circumstances I have discussed the case with Dr Bryant and elected to have the patient evaluated in the ED for possible admission to the hospital. I have spoken with the ER who will accept him directly and will also contact his primary care doctor to inform him of his patient's condition.
--- NOTE | 2017-02-25 12:10 | DIAGNOSTIC IMAGING REPORT ---
CHEST ONE VIEW PORTABLE HISTORY: Short of breath. COMPARISON: Chest 07/30/2015. FINDINGS: No pleural effusions. No pneumothorax. Calcified granuloma the right lung base. Progressive interstitial vascular thickening. This is consistent with mild congestive change. The cardiac silhouette is also increased in size. Degenerative changes within the bilateral shoulders. IMPRESSION: Increase in size in the cardiac silhouette which could be due to mild cardiomegaly or a small pericardial effusion. There is also mild pulmonary vascular congestion. Electronically signed by: Edgar Caicedo M.D. 02/25/2017 12:08 PM Dictated Date/Time: 02/25/2017 12:07 PM
== END | disposition home or self-care (01) ==
LOC: C.GI 09:50
PROVIDERS: ATTEND Internal Medicine
DX: Z86.010 Personal history of colon polyps (principal); Z53.09 Procedure and treatment not carried out because of other contraindication